=== PATIENT | male | born 1960 | race Caucasian/White ===

== ENCOUNTER 2016-06-06 09:53 | Inpatient (IN) | payer OTHER ==
[2016-06-06] MEDS ORDERED: SODIUM CHLORIDE 0.9% 1,000 ML IV STA ×2 (10:53)
[2016-06-06] MEDS ORDERED: LORazepam 2 MG/ML SYRINGE IV STA (10:54)
[2016-06-06 11:07] LABS: Basophils # (A) 0.1 k/uL (0-0.2); Basophils % (A) 1 %; CH 30.1; CHCM 34.8; Eosinophils # (A) 0.2 k/uL (0-0.7); Eosinophils % (A) 2 %; HCT 46.1 % (39.0-53.0); HDW 2.43; HGB 15.6 gm/dL (13.0-17.5); Luc # (Auto) 0.09; Luc % (Auto) 1; Lymphocytes # (A) 2.2 k/uL (1.0-4.8); Lymphocytes % (A) 24 %; MCH 29.4 pg (25.0-35.0); MCHC 33.8 g/dL (31.0-37.0); MCV 86.9 fL (80.0-100.0); Monocytes # (A) 0.3 k/uL (0-1.0); Monocytes % (A) 4 %; Neutrophils # (A) 6.4 k/uL (1.3-7.7); Neutrophils % (A) 70 %; RDW 13.7 % (11.5-15.5); WBC 9.2 k/uL (3.8-10.6); WBC (Perox) 8.53
--- NOTE | 2016-06-06 11:15 | ED ---
General Adult HPI - General Chief complaint: Seizure Stated complaint: seizure Time Seen by Provider: 06/06/16 10:18 Source: patient, RN notes reviewed, old records reviewed Mode of arrival: EMS Limitations: no limitations - History of Present Illness Initial comments: This is a 56-year-old male to the ER for evaluation bruits this patient comes in for evaluation of seizure. Patient states he has history of seizure although records indicate that he has no prior history of seizure. Patient states he had a seizure secondary to possible stroke prior in his life. Patient denies drugs or alcohol. She is brought in by EMS. Seizure was witnessed and patient did have 2 seizures. At this time he states he feels fine is a little weak and foggy denies headache - Related Data Home Medications Medication Instructions Recorded Confirmed Gabapentin [Neurontin] 300 mg PO TID 01/04/15 06/06/16 Indapamide [Lozol] 2.5 mg PO QAM 01/04/15 06/06/16 Loratadine [Claritin] 10 mg PO QAM 01/04/15 06/06/16 Potassium Chloride [Klor-Con 20] 20 meq PO DAILY 01/04/15 06/06/16 Ranitidine HCl [Zantac] 150 mg PO DAILY 01/04/15 06/06/16 cloNIDine HCL [Catapres] 0.1 mg PO BID 01/04/15 06/06/16 traMADol HCl [Ultram] 50 mg PO TID PRN 01/04/15 06/06/16 Aspirin 325 mg PO DAILY 06/06/16 06/06/16 Cholecalciferol [Vitamin D3] 1,000 unit PO DAILY 06/06/16 06/06/16 Cyclobenzaprine [Flexeril] 10 mg PO TID 06/06/16 06/06/16 Levothyroxine Sodium [Synthroid] 150 mcg PO DAILY 06/06/16 06/06/16 Sertraline [Zoloft] 25 mg PO BID 06/06/16 06/06/16 Allergies Allergy/AdvReac Type Severity Reaction Status Date / Time No Known Allergies Allergy Verified 06/06/16 10:54 Review of Systems ROS Statement: Those systems with pertinent positive or pertinent negative responses have been documented in the HPI. ROS Other: All systems not noted in ROS Statement are negative. Past Medical History Past Medical History: CVA/TIA, Hypertension, Thyroid Disorder Additional Past Medical History / Comment(s): LEFT SIDED WEAKNESS, USES CANE. History of Any Multi-Drug Resistant Organisms: None Reported Past Surgical History: No Surgical Hx Reported Additional Past Anesthesia/Blood Transfusion Reaction / Comment(s): NEVER HAD ANESTHESIA. Past Psychological History: Anxiety, Depression Smoking Status: Current every day smoker Past Alcohol Use History: None Reported Additional Past Alcohol Use History / Comment(s): 1/2PPD, HAD SMOKED WELL BEFORE. Past Drug Use History: None Reported General Exam Limitations: no limitations General appearance: alert, in no apparent distress Head exam: Present: atraumatic, normocephalic, normal inspection Eye exam: Present: normal appearance, PERRL, EOMI. Absent: scleral icterus, conjunctival injection, periorbital swelling ENT exam: Present: normal exam, mucous membranes moist Neck exam: Present: normal inspection. Absent: tenderness, meningismus, lymphadenopathy Respiratory exam: Present: normal lung sounds bilaterally. Absent: respiratory distress, wheezes, rales, rhonchi, stridor Cardiovascular Exam: Present: regular rate, normal rhythm, normal heart sounds. Absent: systolic murmur, diastolic murmur, rubs, gallop, clicks GI/Abdominal exam: Present: soft, normal bowel sounds. Absent: distended, tenderness, guarding, rebound, rigid Extremities exam: Present: normal inspection, full ROM, normal capillary refill. Absent: tenderness, pedal edema, joint swelling, calf tenderness Back exam: Present: normal inspection Neurological exam: Present: alert, oriented X3, CN II-XII intact Psychiatric exam: Present: normal affect, normal mood Skin exam: Present: warm, dry, intact, normal color. Absent: rash Course Vital Signs 06/06/16 06/06/16 06/06/16 09:55 11:00 12:11 Temperature 97.0 F L Pulse Rate 88 91 87 Respiratory 18 18 18 Rate Blood Pressure 138/88 122/83 135/86 O2 Sat by Pulse 98 99 98 Oximetry - Reevaluation(s) Reevaluation #1: 06/06/16 12:28 Patient is without seizure here in the emergency room, no neurological deficits noted EKG Findings - EKG Comments: EKG Findings:: EKG shows normal sinus rhythm rate of 84, NC 174, QRS 100, QTC 472 Medical Decision Making - Medical Decision Making 56 year for evaluation he does have a bit seizure, history no history of seizures, 2 seizures today, patient will be admitted for seizure likely secondary to CVA. Neurological evaluation - Lab Data Result diagrams: 06/06/16 10:07 06/06/16 10:07 Lab Results 06/06/16 06/06/16 06/06/16 Range/Units 10:07 10:07 10:07 WBC 9.2 (3.8-10.6) k/uL RBC 5.30 (4.30-5.90) m/uL Hgb 15.6 (13.0-17.5) gm/dL Hct 46.1 (39.0-53.0) % MCV 86.9 (80.0-100.0) fL MCH 29.4 (25.0-35.0) pg MCHC 33.8 (31.0-37.0) g/dL RDW 13.7 (11.5-15.5) % Plt Count 210 (150-450) k/uL Neutrophils % 70 % Lymphocytes % 24 % Monocytes % 4 % Eosinophils % 2 % Basophils % 1 % Neutrophils # 6.4 (1.3-7.7) k/uL Lymphocytes # 2.2 (1.0-4.8) k/uL Monocytes # 0.3 (0-1.0) k/uL Eosinophils # 0.2 (0-0.7) k/uL Basophils # 0.1 (0-0.2) k/uL PT (9.0-12.0) sec INR (<1.1) APTT (22.0-30.0) sec Sodium 142 (137-145) mmol/L Potassium 3.8 (3.5-5.1) mmol/L Chloride 103 (98-107) mmol/L Carbon Dioxide 25 (22-30) mmol/L Anion Gap 14 mmol/L BUN 10 (9-20) mg/dL Creatinine 1.14 (0.66-1.25) mg/dL Est GFR (MDRD) Af Amer >60 (>60 ml/min/1.73 sqM) Est GFR (MDRD) Non-Af >60 (>60 ml/min/1.73 sqM) Glucose 82 (74-99) mg/dL Calcium 11.5 H (8.4-10.2) mg/dL Phosphorus 2.9 (2.5-4.5) mg/dL Magnesium 1.7 (1.6-2.3) mg/dL Total Bilirubin 0.7 (0.2-1.3) mg/dL AST 35 (17-59) U/L ALT 37 (21-72) U/L Alkaline Phosphatase 116 (38-126) U/L Total Creatine Kinase 57 (55-170) U/L CK-MB (CK-2) 1.3 (0.0-2.4) ng/mL CK-MB (CK-2) Rel Index 2.3 Troponin I 0.036 H* (0.000-0.034) ng/mL Total Protein 7.5 (6.3-8.2) g/dL Albumin 4.4 (3.5-5.0) g/dL Salicylates <1.0 mg/dL Acetaminophen <10.0 ug/mL Serum Alcohol <10 mg/dL 06/06/16 Range/Units 10:07 WBC (3.8-10.6) k/uL RBC (4.30-5.90) m/uL Hgb (13.0-17.5) gm/dL Hct (39.0-53.0) % MCV (80.0-100.0) fL MCH (25.0-35.0) pg MCHC (31.0-37.0) g/dL RDW (11.5-15.5) % Plt Count (150-450) k/uL Neutrophils % % Lymphocytes % % Monocytes % % Eosinophils % % Basophils % % Neutrophils # (1.3-7.7) k/uL Lymphocytes # (1.0-4.8) k/uL Monocytes # (0-1.0) k/uL Eosinophils # (0-0.7) k/uL Basophils # (0-0.2) k/uL PT 10.1 (9.0-12.0) sec INR 1.0 (<1.1) APTT 22.8 (22.0-30.0) sec Sodium (137-145) mmol/L Potassium (3.5-5.1) mmol/L Chloride (98-107) mmol/L Carbon Dioxide (22-30) mmol/L Anion Gap mmol/L BUN (9-20) mg/dL Creatinine (0.66-1.25) mg/dL Est GFR (MDRD) Af Amer (>60 ml/min/1.73 sqM) Est GFR (MDRD) Non-Af (>60 ml/min/1.73 sqM) Glucose (74-99) mg/dL Calcium (8.4-10.2) mg/dL Phosphorus (2.5-4.5) mg/dL Magnesium (1.6-2.3) mg/dL Total Bilirubin (0.2-1.3) mg/dL AST (17-59) U/L ALT (21-72) U/L Alkaline Phosphatase (38-126) U/L Total Creatine Kinase (55-170) U/L CK-MB (CK-2) (0.0-2.4) ng/mL CK-MB (CK-2) Rel Index Troponin I (0.000-0.034) ng/mL Total Protein (6.3-8.2) g/dL Albumin (3.5-5.0) g/dL Salicylates mg/dL Acetaminophen ug/mL Serum Alcohol mg/dL - Radiology Data Radiology results: report reviewed (CT brain is negative for acute disease), image reviewed Disposition Clinical Impression: New onset seizure, CVA (cerebral vascular accident) Disposition: ADMITTED IP TO THIS [facility] Condition: Fair Referrals: Salvatore Rodriguez DO [Primary Care Provider] - 1-2 days
[2016-06-06 11:17] LABS: ALT 37 U/L (21-72); AST 35 U/L (17-59); Acetaminophen <10.0 ug/mL; Alcohol <10 mg/dL; Alkaline Phosphatase 116 U/L (38-126); Anion Gap 14 mmol/L; Blood Urea Nitrogen 10 mg/dL (9-20); Calcium 11.5 mg/dL (8.4-10.2); Carbon Dioxide 25 mmol/L (22-30); Chloride 103 mmol/L (98-107); Glucose 82 mg/dL (74-99); Magnesium 1.7 mg/dL (1.6-2.3); Non-African American GFR(MDRD) >60 (>60 ml/min/1.73 sqM); Phosphorous 2.9 mg/dL (2.5-4.5); Potassium 3.8 mmol/L (3.5-5.1); Salicylate <1.0 mg/dL; Sodium 142 mmol/L (137-145); Total Bilirubin 0.7 mg/dL (0.2-1.3); Total Protein 7.5 g/dL (6.3-8.2)
[2016-06-06 11:18] LABS: Partial Thromboplastin Time 22.8 sec (22.0-30.0); Prothrombin Time 10.1 sec (9.0-12.0)
[2016-06-06 11:41] LABS: Creatine Kinase MB 1.3 ng/mL (0.0-2.4)
[2016-06-06 11:46] LABS: Troponin I 0.036 ng/mL (0.000-0.034)
--- NOTE | 2016-06-06 12:18 | CT ---
EXAMINATION TYPE: CT brain wo con DATE OF EXAM: 06/06/2016 12:09 PM COMPARISON: NONE HISTORY: 56-year-old male with weakness TECHNIQUE: Examination was done in axial plane without intravenous contrast. Coronal and sagittal r econstructions performed. CT DLP: 1090.4 mGycm Automated exposure control for dose reduction was used. FINDINGS: Mild generalized supratentorial volume loss. There is extensive hypodensity with encephalomalacia taina ng the right frontal lobe with secondary volume loss in the right cerebellar hemisphere and asymmetri c ex vacuo enlargement of the right lateral ventricle. There is no evidence of acute intracranial hemorrhage, acute ischemic changes, mass, mass-effect, or extra-axial fluid collection. There is no effacement of cerebral sulci or basal subarachnoid cister ns. There is no hydrocephalus. There is no midline shift. Rubio-white matter distinction is preserv ed. Right paranasal septal deviation with a opacified left-sided abhilash bullosa. Mild to moderate mucosal thickening scattered throughout the ethmoid air cells. Mastoid air cells well pneumatized. Orbits an d globes appear intact. IMPRESSION: 1. Remote right MCA territory infarct with secondary volume loss in the right cerebral hemisphere. 2. No acute intracranial abnormality seen. 3. Mild chronic ethmoid sinus disease and opacified left-sided abhilash bullosa incidentally noted.
[2016-06-06] MEDS ORDERED: ASPIRIN 325 MG TAB PO STA (12:25)
[2016-06-06] MEDS ORDERED: levETIRAcetam IV 1,000 MG in SALINE 1 100ML.BAG IVPB STA (12:27)
[2016-06-06] MEDS: SODIUM CHLORIDE 0.9% 1,000 ML IV SCH ×2 (13:05→23:00)
[2016-06-06] MEDS ORDERED: ASPIRIN 300 MG SUPP RECTAL STA (15:48)
--- NOTE | 2016-06-06 16:41 | P.HPIM ---
History of Present Illness H&P Date: 06/06/16 Chief Complaint: Seizure 56 year old gentleman with previous history of right-sided CVA with left-sided deficits comes in to the hospital with an episode of seizure. Patient apparently was seen by Dr. Kraus for 2 other episodes of seizures in the last 3 months. Patient was started on aspirin at that time. No seizure medications were initiated. Patient comes in the hospital with this episode of seizure activity as described by his girlfriend for about 30 seconds with the significant left- sided shaking. Patient was thereafter unconscious and was confused for a short duration. Patient denies having any recent headaches she fevers chills nausea vomiting diarrhea urinary urgency abdominal pain. Patient does have a history of carotid disease which is apparently attributed to his previous stroke. Patient has a contracted arm on the left upper extremity and a foot drop which was residual symptoms. does take tramadol for pain control apparently took about 4 tramadol within a period of one hour on 06/05/2016 this is a few hours prior to the onset of episode. Review of Systems All systems: negative (Noted in HPI) Past Medical History Past Medical History: CVA/TIA, Hypertension, Thyroid Disorder Additional Past Medical History / Comment(s): LEFT SIDED WEAKNESS, USES CANE. History of Any Multi-Drug Resistant Organisms: None Reported Past Surgical History: No Surgical Hx Reported Additional Past Anesthesia/Blood Transfusion Reaction / Comment(s): NEVER HAD ANESTHESIA. Past Psychological History: Anxiety, Depression Smoking Status: Current every day smoker Past Alcohol Use History: None Reported Additional Past Alcohol Use History / Comment(s): 1/2PPD, HAD SMOKED WELL BEFORE. Past Drug Use History: None Reported Medications and Allergies Home Medications Medication Instructions Recorded Confirmed Type Gabapentin [Neurontin] 300 mg PO TID 01/04/15 06/06/16 History Indapamide [Lozol] 2.5 mg PO QAM 01/04/15 06/06/16 History Loratadine [Claritin] 10 mg PO QAM 01/04/15 06/06/16 History Potassium Chloride [Klor-Con 20] 20 meq PO DAILY 01/04/15 06/06/16 History Ranitidine HCl [Zantac] 150 mg PO DAILY 01/04/15 06/06/16 History cloNIDine HCL [Catapres] 0.1 mg PO BID 01/04/15 06/06/16 History traMADol HCl [Ultram] 50 mg PO TID PRN 01/04/15 06/06/16 History Aspirin 325 mg PO DAILY 06/06/16 06/06/16 History Cholecalciferol [Vitamin D3] 1,000 unit PO DAILY 06/06/16 06/06/16 History Cyclobenzaprine [Flexeril] 10 mg PO TID 06/06/16 06/06/16 History Levothyroxine Sodium [Synthroid] 150 mcg PO DAILY 06/06/16 06/06/16 History Sertraline [Zoloft] 25 mg PO BID 06/06/16 06/06/16 History Allergies Allergy/AdvReac Type Severity Reaction Status Date / Time No Known Allergies Allergy Verified 06/06/16 10:54 Physical Exam Vitals: Vital Signs Temp Pulse Pulse Resp BP BP Pulse Ox 06/06/16 15:30 98.1 F 78 18 140/87 100 06/06/16 15:00 82 18 124/86 99 06/06/16 14:30 78 18 140/87 100 06/06/16 14:00 81 20 126/81 99 06/06/16 13:30 98.3 F 90 18 119/86 06/06/16 13:05 84 20 123/80 98 Physical exam Gen. appearance oriented 3 in no distress Neck is supple no JVD Lungs good air entry clear to auscultation no rhonchi or wheezing Heart S1-S2 heard regular rate and rhythm no murmurs appreciated Abdomen is soft nontender no organomegaly bowel sounds are intact Neurologically cranial nerves II-12 grossly intact contracted left upper arm however strength appears to be 2-3 out of 5 left lower extremity strength is 5 out of 5 except for left foot drop right upper and lower x-ray strength is 5 out of 5 Skin no abnormalities appreciated Results CBC & Chem 7: 06/06/16 10:07 06/06/16 10:07 Assessment and Plan Plan: #1 generalized seizure disorder patient does have significant foci for seizure activity from the previous stroke however patient has been taking excessive amounts of tramadol which may be the underlying etiology for it, and I'll has been shown to potentiate seizure activity #2 history of previous right MCA infarct with left-sided deficits #3 ongoing tobacco use #4 history of hypertension #5 peripheral neuropathy #6 dyslipidemia #7 significant PAD #8 dyslipidemia plan Plan We'll discontinue tramadol this was discussed with the patient. We'll obtain MRI of the brain. Have neurology on consultation Keppra have been initiated. Seizure precautions Medications were reconsulted appropriate DVT prophylaxis neuro checks Telemetry monitoring.
[2016-06-06] MEDS ORDERED: HYDROcodone/APAP 7.5-325MG 1 EACH TAB PO PRN (16:42)
--- NOTE | 2016-06-06 16:54 | P.CNNES ---
History of Present Illness Consult date: 06/06/16 Reason for Consult: Patient with seizures and history of stroke. History of Present Illness: This patient is a 56-year-old right-handed white male who apparently today was at home and had 2 witnessed seizures. Patient is a poor historian but states that he thinks he had 2 possible seizures. According to his significant other he was at home and was laying in bed when he apparently had the episode in which he became rigid and stiff. His eyes rolled back into his head. This episode lasted for at least 30-60 seconds before he came out of it. He had a second event very similar to the first. According to his significant other it took about an hour for him to return to baseline. EMS was called to the home. Patient denies any previous history of drug or alcohol use. He was brought into the emergency room at [facility] for further evaluation. He was seen in the ER by Dr. Chacon. A computed tomography scan of the brain was completed and revealed evidence of remote right MCA stroke. No evidence of acute intracranial abnormality was noted. Patient has not been on any specific seizure medications. Apparently he has had a few seizures in the past. His last event possibly happened about 6 months ago. The patient is a poor historian. His processing is very slow. These are all secondary to his history of right MCA stroke. Patient does take one baby aspirin on a daily basis. He states he suffered a stroke in 2013 and was left with left-sided hemiplegia. He has made slow recovery with the help of PT OT evaluations. He was seen in the emergency room for this seizure and was started on Keppra as a primary anticonvulsant medication. Patient's stroke risk factors include hypertension and hyperlipidemia. He is now been admitted and neurology has been consulted for further evaluation and recommendations. Review of Systems Constitutional: Denies chills, Denies fever Eyes: denies blurred vision, denies pain Ears, nose, mouth and throat: Denies headache, Denies sore throat Cardiovascular: Denies chest pain, Denies shortness of breath Respiratory: Denies cough Gastrointestinal: Denies abdominal pain, Denies diarrhea, Denies nausea, Denies vomiting Musculoskeletal: Denies myalgias Integumentary: Denies pruritus, Denies rash Neurological: Denies numbness, Denies weakness Psychiatric: Denies anxiety, Denies depression Endocrine: Denies fatigue, Denies weight change Past Medical History Past Medical History: CVA/TIA, Hypertension, Thyroid Disorder Additional Past Medical History / Comment(s): LEFT SIDED WEAKNESS, USES CANE. History of Any Multi-Drug Resistant Organisms: None Reported Past Surgical History: No Surgical Hx Reported Additional Past Anesthesia/Blood Transfusion Reaction / Comment(s): NEVER HAD ANESTHESIA. Past Psychological History: Anxiety, Depression Smoking Status: Current every day smoker Past Alcohol Use History: None Reported Additional Past Alcohol Use History / Comment(s): 1/2PPD, HAD SMOKED WELL BEFORE. Past Drug Use History: None Reported Medications and Allergies Home Medications Medication Instructions Recorded Confirmed Type Gabapentin [Neurontin] 300 mg PO TID 01/04/15 06/06/16 History Indapamide [Lozol] 2.5 mg PO QAM 01/04/15 06/06/16 History Loratadine [Claritin] 10 mg PO QAM 01/04/15 06/06/16 History Potassium Chloride [Klor-Con 20] 20 meq PO DAILY 01/04/15 06/06/16 History Ranitidine HCl [Zantac] 150 mg PO DAILY 01/04/15 06/06/16 History cloNIDine HCL [Catapres] 0.1 mg PO BID 01/04/15 06/06/16 History traMADol HCl [Ultram] 50 mg PO TID PRN 01/04/15 06/06/16 History Aspirin 325 mg PO DAILY 06/06/16 06/06/16 History Cholecalciferol [Vitamin D3] 1,000 unit PO DAILY 06/06/16 06/06/16 History Cyclobenzaprine [Flexeril] 10 mg PO TID 06/06/16 06/06/16 History Levothyroxine Sodium [Synthroid] 150 mcg PO DAILY 06/06/16 06/06/16 History Sertraline [Zoloft] 25 mg PO BID 06/06/16 06/06/16 History Allergies Allergy/AdvReac Type Severity Reaction Status Date / Time No Known Allergies Allergy Verified 06/06/16 10:54 Physical Examination - Vital Signs Vital Signs: Vital Signs Temp Pulse Pulse Resp BP BP Pulse Ox 06/06/16 15:30 98.1 F 78 18 140/87 100 06/06/16 15:00 82 18 124/86 99 04/30/17 14:30 78 18 140/87 100 06/06/16 14:00 81 20 126/81 99 06/06/16 13:30 98.3 F 90 18 119/86 06/06/16 13:05 84 20 123/80 98 - Constitutional General appearance: average body habitus, cooperative - EENT EENT: PERRL, mucous membranes moist - Respiratory Respiratory: lungs clear, normal breath sounds - Cardiovascular Cardiovascular: regular rate, normal S1, normal S2 Extremities: no peripheral edema bilaterally - Gastrointestinal Gastrointestinal: normoactive bowel sounds - Integumentary Integumentary: normal - Neurologic Cranial nerve examination: PERRL, EOMI, VFF, V1/V2/V3 grossly intact, face symmetric, intact gag reflex, intact corneal reflex, normal palatal elevation Speech examination: intact Sensorimotor examination: intact Detailed motor examination: grossly full strength in all extremities Motor examination - right side: 5/5: biceps, triceps, wrist flexion, wrist extension, dish machine operator, hip flexors, knee extensors, dorsiflexion, toe extension (EHL) , plantarflexion Motor examination - left side: 5/5: biceps, triceps, wrist flexion, wrist extension, dish machine operator, hip flexors, knee extensors, dorsiflexion, toe extension (EHL) , plantarflexion Detailed sensory examination: intact Incision: clean Reflexes: 1+: ankle, bicep, knee, tricep - Musculoskeletal Musculoskeletal: no pain - Psychiatric Psychiatric: mood/affect appropriate, cooperative Results - Laboratory Findings CBC and BMP: 06/06/16 10:07 06/06/16 10:07 Assessment and Plan (1) Chronic right arterial ischemic stroke, MCA (middle cerebral artery) Status: Acute Code(s): I69.30 - UNSPECIFIED SEQUELAE OF CEREBRAL INFARCTION (2) Complex partial epilepsy Status: Acute Code(s): G40.209 - LOCAL-REL SYMPTC EPI W CMPLX PRT SEIZ,NOT NTRCT,W/O STAT EPI (3) New onset seizure Status: Acute Code(s): R56.9 - UNSPECIFIED CONVULSIONS Plan: This patient is a 56-year-old male with a history of right MCA stroke which she suffered in 2013. He has been left with residual left-sided hemiparesthesias. Apparently today he had 2 generalized seizures. These are witnessed by his significant other. Patient was brought by EMS to the emergency room where he was only admitted to Hospital. And when his computed tomography scan of the brain was reported negative for any acute changes. There was evidence of an old right MCA stroke. No evidence of acute hemorrhage. The patient was subsequent admitted to the hospital. He was loaded in the ER with IV levetiracetam thousand milligrams twice a day. We will check his levetiracetam blood level tomorrow morning. The patient will undergo routine EEG for further assessment. It is unclear whether these 2 events are related to her history of seizures in the past. His neurological examination reveals evidence of left- sided spastic hemiparesis from his previous stroke. We will continue close neurological follow-up of this patient. We will adjust his levetiracetam blood level if needed. He was advised of the [place] driving law which states he cannot drive for periods 6 months following his last seizure. His overall prognosis at this time remains very guarded. His overall prognosis at this time remains very guarded. Time with Patient: Greater than 30
[2016-06-06] MEDS ORDERED: CALCIUM CARBONATE 500 MG CHEWABLE PO PRN (18:25)
[2016-06-06] MEDS ORDERED: MAG HYDROX/AL HYDROX/SIMETH 30 ML CUP PO PRN (21:00)
[2016-06-06] MEDS: cloNIDine HCL 0.1 MG TAB PO SCH (21:14)
[2016-06-06] MEDS: GABAPENTIN 300 MG CAP PO SCH (21:14)
[2016-06-06] MEDS: SERTRALINE 25 MG TAB PO SCH (21:14)
[2016-06-06] MEDS: levETIRAcetam IV 1,000 MG in SALINE 1 100ML.BAG IVPB SCH (23:00)
[2016-06-06] MEDS: LORATADINE 10 MG TAB PO SCH (23:00)
[2016-06-07] MEDS: LEVOTHYROXINE 75 MCG TAB PO SCH (05:50)
[2016-06-07 08:22] LABS: Basophils % (A) 1 %; CH 30.2; CHCM 35.4; Eosinophils # (A) 0.2 k/uL (0-0.7); Eosinophils % (A) 3 %; HCT 38.6 % (39.0-53.0); HDW 2.49; HGB 13.7 gm/dL (13.0-17.5); Luc # (Auto) 0.12; Luc % (Auto) 2; Lymphocytes # (A) 3.1 k/uL (1.0-4.8); Lymphocytes % (A) 46 %; MCH 30.4 pg (25.0-35.0); MCHC 35.5 g/dL (31.0-37.0); MCV 85.6 fL (80.0-100.0); Mean Platelet Volume 7.9; Monocytes # (A) 0.4 k/uL (0-1.0); Monocytes % (A) 7 %; Neutrophils # (A) 2.8 k/uL (1.3-7.7); Neutrophils % (A) 42 %; RBC 4.51 m/uL (4.30-5.90); RDW 13.6 % (11.5-15.5); WBC 6.7 k/uL (3.8-10.6); WBC (Perox) 6.04
[2016-06-07] MEDS ORDERED: ASPIRIN 325 MG TAB PO SCH (09:00)
--- NOTE | 2016-06-07 09:39 | MR ---
EXAMINATION TYPE: MR brain wo/w con DATE OF EXAM: 06/07/2016 9:31 AM COMPARISON: CT brain 06/06/2016 HISTORY: Mass CONTRAST: Patient received 17 mL intravenous MultiHance gadolinium contrast. Multiplanar and multispin-echo imaging of the brain was performed . Pre and post contrast enhanced i mages are obtained. The ventricles, basal cisterns and sulci overlying the cerebral convexities are moderately enlarged. Remote insult right frontal lobe with associated gliosis and ex vacuo dilatation right frontal horn and right lateral ventricle. There is evidence of moderate periventricular white matter ischemic demyelination. Remote deep white matter insults are also noted. No acute edema is seen on diffusion weighted imaging. There is no evidence for midline shift or mass effect. Acute intracranial hemorrhage or extra-axial collection is not evident. No enhancing lesions are seen. The paranasal sinuses and mastoid air cells are well-aerated. IMPRESSION: 1. Moderate sized area of remote insult right frontal lobe with associated gliosis and encephalomalac ia. 2. No enhancing lesion is identified. 3. Age-related atrophic and chronic small vessel ischemic change.
[2016-06-07] MEDS: SODIUM CHLORIDE 0.9% 1,000 ML IV SCH ×2 (09:44→18:24)
[2016-06-07] MEDS: GABAPENTIN 300 MG CAP PO SCH ×3 (09:45→20:35)
[2016-06-07] MEDS: CHOLECALCIFEROL 1,000 UNIT TAB PO SCH (09:45)
[2016-06-07] MEDS: cloNIDine HCL 0.1 MG TAB PO SCH ×2 (09:45→20:35)
[2016-06-07] MEDS: FAMOTIDINE 20 MG TAB PO SCH (09:45)
[2016-06-07] MEDS: ASPIRIN 325 MG TAB PO SCH (09:45)
[2016-06-07] MEDS: INDAPAMIDE 2.5 MG TAB PO SCH (09:46)
[2016-06-07] MEDS: SERTRALINE 25 MG TAB PO SCH ×2 (09:46→20:35)
[2016-06-07] MEDS: LORATADINE 10 MG TAB PO SCH (09:46)
[2016-06-07 11:19] LABS: ALT 35 U/L (21-72); AST 32 U/L (17-59); Alkaline Phosphatase 104 U/L (38-126); Anion Gap 11 mmol/L; Blood Urea Nitrogen 9 mg/dL (9-20); Calcium 9.6 mg/dL (8.4-10.2); Carbon Dioxide 28 mmol/L (22-30); Chloride 105 mmol/L (98-107); Glucose 118 mg/dL (74-99); Magnesium 1.5 mg/dL (1.6-2.3); Non-African American GFR(MDRD) >60 (>60 ml/min/1.73 sqM); Potassium 3.5 mmol/L (3.5-5.1); Sodium 144 mmol/L (137-145); Total Bilirubin 0.7 mg/dL (0.2-1.3); Total Protein 6.7 g/dL (6.3-8.2)
[2016-06-07] MEDS: levETIRAcetam IV 1,000 MG in SALINE 1 100ML.BAG IVPB SCH ×2 (12:20→23:27)
--- NOTE | 2016-06-07 14:39 | P.CRDCN ---
History of Present Illness Consult date: 06/07/16 History of present illness: This is a pleasant 56-year-old gentleman with a past medical history significant for CVA was brought to the hospital after he had seizure at home. The patient had 3 episodes of seizure at home. The seizure was witnessed by family members. We get involved in the care of the patient because the cardiac enzymes were checked and came in to be slightly abnormal. The EKG showed sinus rhythm with old inferior OH and no acute ischemic changes. The patient does not recall having any chest pain or discomfort or difficulty breathing. He is a poor historian overall. He does not have any diabetes or hypertension or dyslipidemia nor coronary artery disease. He does smoke about three quarters of a pack per day. He does have a family history of coronary artery disease. I would consider a conservative medical approach at this point of time in view of the absence of chest discomfort and EKG changes. We will obtain 2 more sets of serial cardiac enzymes. He is on aspirin we'll continue that. I would add statin to the current medical treatment. Obtain an echocardiogram was Doppler. Also he needs to have a stress test to rule out any severe underlying CAD down the line. Past Medical History Past Medical History: CVA/TIA, Hyperlipidemia, Hypertension, Thyroid Disorder Additional Past Medical History / Comment(s): Left sided weakness from CVA in 2013. History of Any Multi-Drug Resistant Organisms: None Reported Past Surgical History: No Surgical Hx Reported Past Anesthesia/Blood Transfusion Reactions: No Reported Reaction Additional Past Anesthesia/Blood Transfusion Reaction / Comment(s): NEVER HAD ANESTHESIA. Past Psychological History: Anxiety, Depression Smoking Status: Current every day smoker Past Alcohol Use History: None Reported Additional Past Alcohol Use History / Comment(s): Smokes approx 5 cig a day Past Drug Use History: None Reported - Past Family History Father Family Medical History: Congestive Heart Failure (CHF) Additional Family Medical History / Comment(s): Parkinsons Mother Family Medical History: Cancer Medications and Allergies Home Medications Medication Instructions Recorded Confirmed Type Gabapentin [Neurontin] 300 mg PO TID 01/04/15 06/06/16 History Indapamide [Lozol] 2.5 mg PO QAM 01/04/15 06/06/16 History Loratadine [Claritin] 10 mg PO QAM 01/04/15 06/06/16 History Potassium Chloride [Klor-Con 20] 20 meq PO DAILY 01/04/15 06/06/16 History Ranitidine HCl [Zantac] 150 mg PO DAILY 01/04/15 06/06/16 History cloNIDine HCL [Catapres] 0.1 mg PO BID 01/04/15 06/06/16 History traMADol HCl [Ultram] 50 mg PO TID PRN 01/04/15 06/06/16 History Aspirin 325 mg PO DAILY 06/06/16 06/06/16 History Cholecalciferol [Vitamin D3] 1,000 unit PO DAILY 06/06/16 06/06/16 History Cyclobenzaprine [Flexeril] 10 mg PO TID 06/06/16 06/06/16 History Levothyroxine Sodium [Synthroid] 150 mcg PO DAILY 06/06/16 06/06/16 History Sertraline [Zoloft] 25 mg PO BID 06/06/16 06/06/16 History Allergies Allergy/AdvReac Type Severity Reaction Status Date / Time No Known Allergies Allergy Verified 06/06/16 10:54 Physical Exam Vitals: Vital Signs Temp Pulse Pulse Resp BP BP BP 06/07/16 12:00 97.3 F L 73 18 161/98 06/07/16 08:00 99.0 F 83 18 143/90 06/07/16 07:41 06/07/16 03:35 97.8 F 72 16 150/97 06/07/16 00:00 78 16 145/92 06/06/16 21:24 98.6 F 74 16 142/90 06/06/16 17:04 97.3 F L 76 16 162/96 06/06/16 16:00 97.3 F L 76 16 142/92 06/06/16 15:30 98.1 F 78 18 140/87 06/06/16 15:00 82 18 124/86 Pulse Ox 06/07/16 12:00 98 06/07/16 08:00 97 06/07/16 07:41 94 L 06/07/16 03:35 93 L 06/07/16 00:00 95 06/06/16 21:24 96 06/06/16 17:04 100 06/06/16 16:00 98 06/06/16 15:30 100 06/06/16 15:00 99 Intake and Output 0406/07/16 06/07/16 22:59 06:59 14:59 Intake Total 400 800 Output Total 400 925 Balance 0 800 -925 Intake: IV 400 800 Sodium Chloride 0.9% 1, 400 700 000 ml @ 100 mls/hr IV . Q10H [facility] Rx#:[id number] levETIRAcetam IV 1,000 mg 100 In Saline 1 100ml.bag @ 400 mls/hr IVPB ONCE STA Rx#:[id number] Output: Urine 400 925 Other: Voiding Method Urinal Weight 86 kg - Constitutional General appearance: no acute distress - Respiratory Respiratory: bilateral: CTA - Cardiovascular Rhythm: regular Heart sounds: normal: S1, S2 Results 06/07/16 05:52 06/07/16 10:17 Cardiac Enzymes 06/06/16 06/06/16 06/07/16 Range/Units 16:18 21:21 10:17 AST 32 (17-59) U/L Troponin I 0.903 H* 0.823 H* (0.000-0.034) ng/mL CBC 06/07/16 Range/Units 05:52 WBC 6.7 (3.8-10.6) k/uL RBC 4.51 (4.30-5.90) m/uL Hgb 13.7 (13.0-17.5) gm/dL Hct 38.6 L (39.0-53.0) % Plt Count 186 (150-450) k/uL Comprehensive Metabolic Panel 06/07/16 Range/Units 10:17 Sodium 144 (137-145) mmol/L Potassium 3.5 (3.5-5.1) mmol/L Chloride 105 (98-107) mmol/L Carbon Dioxide 28 (22-30) mmol/L BUN 9 (9-20) mg/dL Creatinine 1.15 (0.66-1.25) mg/dL Glucose 118 H (74-99) mg/dL Calcium 9.6 (8.4-10.2) mg/dL AST 32 (17-59) U/L ALT 35 (21-72) U/L Alkaline Phosphatase 104 (38-126) U/L Total Protein 6.7 (6.3-8.2) g/dL Albumin 3.9 (3.5-5.0) g/dL Current Medications Generic Name Dose Route Start Last Admin Trade Name Freq PRN Reason Stop Dose Admin Hydrocodone Bitart/Acetaminophen 1 each 06/06/16 16:42 06/06/16 23:23 Minturn 7.5-325 PO 1 each Q8H PRN Administration Moderate Pain Al Hydroxide/Mg Hydroxide 30 ml 06/06/16 21:00 06/06/16 21:13 Maalox PO 30 ml Q4HR PRN Administration GI Upset Aspirin 325 mg 06/07/16 09:00 06/07/16 09:45 Aspirin PO 325 mg DAILY DON Administration Calcium Carbonate/Glycine 500 mg 06/06/16 18:25 06/06/16 19:00 Tums PO 500 mg QID PRN Administration Heartburn Cholecalciferol 1,000 unit 06/07/16 09:00 06/07/16 09:45 Vitamin D3 PO 1,000 unit DAILY DON Administration Clonidine 0.1 mg 06/06/16 21:00 06/07/16 09:45 Catapres PO 0.1 mg BID DON Administration Famotidine 20 mg 06/07/16 09:00 06/07/16 09:45 Pepcid PO 20 mg DAILY DON Administration Gabapentin 300 mg 06/06/16 22:00 06/07/16 09:45 Neurontin PO 300 mg TID DON Administration Sodium Chloride 1,000 mls @ 100 mls/hr 06/06/16 12:30 06/07/16 09:44 Saline 0.9% IV 100 mls/hr .Q10H DON Administration Levetiracetam 1,000 mg/ IV 100 mls @ 400 mls/hr 06/07/16 00:00 06/07/16 12:20 Solution IVPB 400 mls/hr Q12H DON Administration Indapamide 2.5 mg 06/07/16 09:00 06/07/16 09:46 Lozol PO 2.5 mg QAM DON Administration Levothyroxine Sodium 150 mcg 06/07/16 06:30 06/07/16 05:50 Synthroid PO 150 mcg DAILY@0630 DON Administration Loratadine 10 mg 06/06/16 21:30 06/07/16 09:46 Claritin PO 10 mg DAILY DON Administration Sertraline HCl 25 mg 06/06/16 21:00 06/07/16 09:46 Zoloft PO 25 mg BID DON Administration Intake and Output 06/06/16 06/07/16 06/07/16 22:59 06:59 14:59 Intake Total 400 800 Output Total 400 925 Balance 0 800 -925 Intake: IV 400 800 Sodium Chloride 0.9% 1, 400 700 000 ml @ 100 mls/hr IV . Q10H [facility] Rx#:[id number] levETIRAcetam IV 1,000 mg 100 In Saline 1 100ml.bag @ 400 mls/hr IVPB ONCE STA Rx#:[id number] Output: Urine 400 925 Other: Voiding Method Urinal Weight 86 kg 06/07/16 05:52 06/07/16 10:17 Assessment and Plan Plan: Assessment #1 recurrent seizure #2 history of stroke Plan #1 smoking cessation was discussed with him #2 add statin to the aspirin #3 obtaining an echocardiogram was Doppler #4 follow-up with the patient
--- NOTE | 2016-06-07 19:11 | PN ---
HOSPITAL COURSE/SUBJECTIVE DATA: This is a 56-year-old gentleman who was admitted to the hospital with an episode of seizure. Patient had a significant right MCA territory stroke with left-sided deficits 2 years ago. Patient comes into the hospital; was noted to have a troponin leak as well. Patient was on Tramadol; was taking apparently 4 to 5 Tramadol tablets a few hours prior to the onset of his seizure episode. Patient has had 2 other episodes of seizures in the last 3 months. Patient was being seen by Dr. Dobbs. Today patient states that he is feeling improved. At his baseline denies headaches, blurry vision, nausea, vomiting, diarrhea, abdominal pain. PHYSICAL EXAMINATION: VITAL SIGNS: Temperature 97.3, heart rate 73, blood pressure 161/98. Saturating 98% on room air. GENERALLY: Patient appears to be alert, oriented x3. HEENT: The pupils are equal and reactive to light and accommodation. HEART: S1, S2 present. No murmur appreciated. LUNGS: Good air entry. No wheezing or rhonchi noted. ABDOMINAL EXAM: Soft, nontender, no organomegaly appreciated. GENITOURINARY: No Anna in place. EXTREMITIES: Pulses can be palpated distally. Denies any tenderness on gross palpation. SKIN: On a gross skin exam does not appear to have any purpura or any skin rashes that were noted. NEUROLOGICALLY: Strength on the left upper extremity is 3/5, contracted; left lower extremity is 5/5; right upper and right lower extremity is 5/5. Cranial nerves 2 to 12 are grossly intact. Laboratory data today include hemoglobin 13.7, hematocrit 38.6; white count 6.7, platelets 186. Sodium 144, potassium 3.5, chloride 105, bicarb 28. BUN 9, creatinine 1.15. Peak troponin of 0.903. TSH of 9.2. ASSESSMENT AND PLAN: 1. Generalized seizure disorder. Await EEG. Discussed discontinuation of Tramadol with the patient. Continue Keppra. 2. Previous right middle cerebral artery infarct with left-sided deficits. 3. Ongoing tobacco use. 4. History of hypertension. 5. Indeterminate troponin leak. 6. Significant peripheral arterial disease. 7. Dyslipidemia. PLAN: Continue telemetry monitoring. Patient would need a stress test as recommended by Cardiology. Await echocardiogram results. Patient is free of chest pain at this time. Will likely discharge the patient in the next 24 hours, depending on the results of the echo and EEG. Can follow up with Dr. Liu on an outpatient basis to obtain stress test.
--- NOTE | 2016-06-07 19:28 | P.PN ---
Subjective This patient is a 56 year old male who was seen in neurology consultation yesterday for new onset seizure and history of stroke. Patient was brought into the emergency room after he had a questionable 2 episodes of generalized seizure activity. He was seen in the ER by Dr. Galeano, and underwent a computed tomography scan of the brain. A CAT scan of the brain revealed evidence of a remote right MCA stroke. No other abnormalities were noted at the time. He was started on Keppra for seizure prophylaxis. He was up screaming admitted to hospital yesterday. His neurological examination yesterday revealed evidence of remote left-sided hemiparesis from previous stroke. He was sent for MRI of the brain today with and without gadolinium. The report of the MRI today indicates a moderate size remote insult to the right frontal lobe with associated gliosis and encephalomalacia. No enhancing lesion was identified. We reviewed the results of the MRI today with the patient. He is to continue on Keppra at this time for seizure prophylaxis. His Keppra blood level is pending today from the laboratory. He will undergo EEG today which will be reviewed. His EEG was reviewed today and fails to reveal any evidence of epileptic seizure focus. Patient may continue on Keppra at this time and have a repeat level done soon after discharge. His overall prognosis at this time remains guarded. Objective - Vital Signs Vital signs: Vital Signs Temp 97.3 F L 06/07/16 12:00 Pulse 73 06/07/16 12:00 Resp 18 06/07/16 12:00 BP 161/98 06/07/16 12:00 Pulse Ox 98 06/07/16 12:00 Intake & Output 06/06/16 06/07/16 06/07/16 18:59 06:59 18:59 Intake Total 1200 Output Total 400 925 Balance 800 -925 Weight 86 kg Intake: IV 1200 Sodium Chloride 0.9% 1, 1100 000 ml @ 100 mls/hr IV . Q10H [facility] Rx#:[id number] levETIRAcetam IV 1,000 mg 100 In Saline 1 100ml.bag @ 400 mls/hr IVPB ONCE STA Rx#:[id number] Output: Urine 400 925 Other: Voiding Method Urinal - Exam Physical examination: PHYSICAL EXAMINATION: Patient is resting comfortably in bed. VITAL SIGNS: Blood pressure is [161/98]. Heart rate is [73]. Respiration is [18] . Temperature is [97.3]. HEENT: Head is atraumatic, neck is supple, there were no carotid bruits. CHEST: Lungs are clear to auscultation and percussion. CARDIAC: S1, S2 normal rate and rhythm. There is no murmur. ABDOMEN: Soft and nontender. Bowel sounds are present. EXTREMITIES: There is no pedal edema. Peripheral pulses are present. Neurological examination: Patient's neurological examination is unchanged from yesterday. - Labs CBC & Chem 7: 06/07/16 05:52 06/07/16 10:17 Labs: Abnormal Lab Results - Last 24 Hours (Table) 06/06/16 06/06/16 06/07/16 Range/Units 16:18 21:21 05:52 Hct 38.6 L (39.0-53.0) % Glucose (74-99) mg/dL Magnesium (1.6-2.3) mg/dL Troponin I 0.903 H* 0.823 H* (0.000-0.034) ng/mL TSH (0.465-4.680) mIU/L 06/07/16 06/07/16 Range/Units 05:52 10:17 Hct (39.0-53.0) % Glucose 118 H (74-99) mg/dL Magnesium 1.5 L (1.6-2.3) mg/dL Troponin I (0.000-0.034) ng/mL TSH 9.260 H (0.465-4.680) mIU/L Assessment and Plan (1) Chronic right arterial ischemic stroke, MCA (middle cerebral artery) Status: Acute Code(s): I69.30 - UNSPECIFIED SEQUELAE OF CEREBRAL INFARCTION (2) Complex partial epilepsy Status: Acute Code(s): G40.209 - LOCAL-REL SYMPTC EPI W CMPLX PRT SEIZ,NOT NTRCT,W/O STAT EPI (3) New onset seizure Status: Acute Code(s): R56.9 - UNSPECIFIED CONVULSIONS Plan: This patient is a 56-year-old male with a history of right MCA stroke which she suffered in 2013. He has been left with residual left-sided hemiparesthesias. Apparently today he had 2 generalized seizures. These are witnessed by his significant other. Patient was brought by EMS to the emergency room where he was only admitted to Hospital. And when his computed tomography scan of the brain was reported negative for any acute changes. There was evidence of an old right MCA stroke. No evidence of acute hemorrhage. The patient was subsequent admitted to the hospital. He was loaded in the ER with IV levetiracetam thousand milligrams twice a day. We will check his levetiracetam blood level tomorrow morning. The patient will undergo routine EEG for further assessment. It is unclear whether these 2 events are related to her history of seizures in the past. His neurological examination reveals evidence of left- sided spastic hemiparesis from his previous stroke. We will continue close neurological follow-up of this patient. We will adjust his levetiracetam blood level if needed. His Keppra blood level is still pending today. He did undergo MRI of the brain today the results which are noted above. There is no evidence of new or acute areas of stroke. His routine EEG was reviewed and fails to reveal any evidence of epileptic seizure focus. He may be considered for discharge home tomorrow and may follow-up in the outpatient neurology clinic in 3-4 weeks. He was advised of the [place] driving law which states he cannot drive for periods 6 months following his last seizure. His overall prognosis at this time remains very guarded. His overall prognosis at this time remains very guarded.
[2016-06-07 20:01] VITALS: RESP 16
[2016-06-08] MEDS: SODIUM CHLORIDE 0.9% 1,000 ML IV SCH ×2 (05:42→15:44)
[2016-06-08] MEDS: LEVOTHYROXINE 75 MCG TAB PO SCH (06:58)
[2016-06-08] MEDS: ASPIRIN 325 MG TAB PO SCH (08:33)
[2016-06-08 08:34] VITALS: TEMP 97
[2016-06-08] MEDS: LORATADINE 10 MG TAB PO SCH (08:34)
[2016-06-08] MEDS: FAMOTIDINE 20 MG TAB PO SCH (08:34)
[2016-06-08] MEDS: INDAPAMIDE 2.5 MG TAB PO SCH (08:34)
[2016-06-08] MEDS: cloNIDine HCL 0.1 MG TAB PO SCH (08:34)
[2016-06-08] MEDS: GABAPENTIN 300 MG CAP PO SCH ×2 (08:34→17:32)
[2016-06-08] MEDS: CHOLECALCIFEROL 1,000 UNIT TAB PO SCH (08:34)
[2016-06-08] MEDS: SERTRALINE 25 MG TAB PO SCH (08:34)
--- NOTE | 2016-06-08 08:41 | EEG ---
DATE OF SERVICE: 06/07/2016 INDICATIONS FOR EXAMINATION: This patient is a 56 -year-old male being evaluated for seizure disorder and recent stroke. AGE: 56Y EEG FINDINGS: A routine 21 channel awake digital EEG recording was accomplished utilizing the 10-20 international system with bipolar and referential montages. The background activity in the most alert resting state consists of a low to medium amplitude fairly well developed and well sustained 6-7 Hz activity over the posterior head regions. This posterior rhythm attenuates to eye opening. There is a small amount of low amplitude 18-20 Hz beta activity seen maximally over the anterior head regions. Muscle and movement artifacts were observed on a few occasions during the tracing. Hyperventilation was not performed. Photic stimulation at flash frequencies of 2-30 Hz produced a good symmetrical occipital driving response. No epileptiform discharges were seen. IMPRESSION: This EEG is moderately abnormal in a diffuse fashion due to slight slowing of the EEG background. The EEG failed to reveal any focal, lateralized or epileptiform abnormalities. Clinical correlation is recommended.
[2016-06-08] MEDS: levETIRAcetam IV 1,000 MG in SALINE 1 100ML.BAG IVPB SCH (11:28)
--- NOTE | 2016-06-08 11:34 | ECHOF ---
Referral Reason:elevated trop MEASUREMENTS -------- HEIGHT: 182.9 cm WEIGHT: 85.7 kg BP: 150/97 IVSd: 1.3 cm (0.6 - 1.1) LVIDd: 3.6 cm (3.9 - 5.3) LVPWd: 1.2 cm (0.6 - 1.1) IVSs: 1.4 cm LVIDs: 3.1 cm LVPWs: 1.1 cm Ao Diam: 3.7 cm (2.0 - 3.7) AV Cusp: 1.8 cm (1.5 - 2.6) LA Diam: 3.4 cm (2.7 - 3.8) MV EXCURSION: 18.711 mm (> 18.000) MV EF SLOPE: 118 mm/s (70 - 150) EPSS: 1.5 cm MV E Tyrell: 0.43 m/s MV DecT: 201 ms MV A Tyrell: 0.52 m/s MV E/A Ratio: 0.84 RAP: 5.00 mmHg RVSP: 21.28 mmHg FINDINGS -------- Sinus rhythm. This was a technically adequate study. There is mild concentric left ventricular hypertrophy. Overall left ventricular systolic function is low-normal with, an EF between 50 - 55 %. The right ventricle is normal in size. The left atrial size is normal. The right atrial size is normal. There is mild aortic valve sclerosis. There is no evidence of aortic regurgitation. Mild mitral annular calcification present. Mild mitral regurgitation is present. Mild tricuspid regurgitation present. There is no evidence of pulmonary hypertension. The right ventricular systolic pressure, as measured by Doppler, is 21.28mmHg. There is no pulmonic regurgitation present. The aortic root size is normal. There is no pericardial effusion. CONCLUSIONS -------- 1. There is mild concentric left ventricular hypertrophy. 2. The aortic root size is normal. 3. There is no pericardial effusion. 4. Overall left ventricular systolic function is low-normal with, an EF between 50 - 55 %. 5. There is mild aortic valve sclerosis. 6. Mild mitral annular calcification present. 7. Mild mitral regurgitation is present. 8. Mild tricuspid regurgitation present. 9. There is no evidence of pulmonary hypertension. 10. The right ventricular systolic pressure, as measured by Doppler, is 21.28mmHg. 11. There is no pulmonic regurgitation present. STEREOTYPER HELPER: Leilani Chaudhry RDCS
[2016-06-08] MEDS: MAGNESIUM SULFATE-D5W PMX 1 GM in DEXTROSE/WATER 1 100ML.BAG IVPB SCH ×2 (12:05→14:25)
--- NOTE | 2016-06-08 15:00 | P.PN ---
Subjective This patient is a 56 year old male who was seen in neurology consultation yesterday for new onset seizure and history of stroke. Patient was brought into the emergency room after he had a questionable 2 episodes of generalized seizure activity. He was seen in the ER by Dr. Galeano, and underwent a computed tomography scan of the brain. A CAT scan of the brain revealed evidence of a remote right MCA stroke. No other abnormalities were noted at the time. He was started on Keppra for seizure prophylaxis. He was up screaming admitted to hospital yesterday. His neurological examination yesterday revealed evidence of remote left-sided hemiparesis from previous stroke. He was sent for MRI of the brain today with and without gadolinium. The report of the MRI today indicates a moderate size remote insult to the right frontal lobe with associated gliosis and encephalomalacia. No enhancing lesion was identified. We reviewed the results of the MRI today with the patient. He is to continue on Keppra at this time for seizure prophylaxis. His Keppra blood level is pending today from the laboratory. He will undergo EEG today which will be reviewed. His EEG was reviewed today and fails to reveal any evidence of epileptic seizure focus. Patient may continue on Keppra at this time and have a repeat level done soon after discharge. His Keppra blood level is still pending this morning. He should continue on his current dose of Keppra even at the time of discharge. He should have a repeat level done in 1 week following his discharge home. We once again reviewed the results of his EEG and MRI with the patient in detail. His overall prognosis at this time remains guarded. Objective - Vital Signs Vital signs: Vital Signs Temp 97.0 F L 06/08/16 08:00 Pulse 79 06/08/16 11:17 Resp 16 06/08/16 11:17 BP 126/98 06/08/16 11:17 Pulse Ox 98 06/08/16 11:17 Intake & Output 06/07/16 06/08/16 06/08/16 18:59 06:59 18:59 Intake Total 1000 Output Total 2325 3550 2450 Balance -2565 -1000 -9480 Weight 85 kg Intake: IV 1000 Sodium Chloride 0.9% 1, 1000 000 ml @ 100 mls/hr IV . Q10H [facility] Rx#:[id number] Output: Urine 2324 3550 2450 Other: Voiding Method Urinal # Voids 1 # Bowel Movements 2 - Exam Physical examination: PHYSICAL EXAMINATION: Patient is resting comfortably in bed. VITAL SIGNS: Blood pressure is [126/98]. Heart rate is [79]. Respiration is [16] . Temperature is [97.2]. HEENT: Head is atraumatic, neck is supple, there were no carotid bruits. CHEST: Lungs are clear to auscultation and percussion. CARDIAC: S1, S2 normal rate and rhythm. There is no murmur. ABDOMEN: Soft and nontender. Bowel sounds are present. EXTREMITIES: There is no pedal edema. Peripheral pulses are present. Neurological examination: Patient's neurological examination is unchanged from yesterday. - Labs CBC & Chem 7: 06/07/16 05:52 06/07/16 10:17 Assessment and Plan (1) Chronic right arterial ischemic stroke, MCA (middle cerebral artery) Status: Acute Code(s): I69.30 - UNSPECIFIED SEQUELAE OF CEREBRAL INFARCTION (2) Complex partial epilepsy Status: Acute Code(s): G40.209 - LOCAL-REL SYMPTC EPI W CMPLX PRT SEIZ,NOT NTRCT,W/O STAT EPI (3) New onset seizure Status: Acute Code(s): R56.9 - UNSPECIFIED CONVULSIONS Plan: This patient is a 56-year-old male with a history of right MCA stroke which she suffered in 2013. He has been left with residual left-sided hemiparesthesias. Apparently today he had 2 generalized seizures. These are witnessed by his significant other. Patient was brought by EMS to the emergency room where he was only admitted to Hospital. And when his computed tomography scan of the brain was reported negative for any acute changes. There was evidence of an old right MCA stroke. No evidence of acute hemorrhage. The patient was subsequent admitted to the hospital. He was loaded in the ER with IV levetiracetam thousand milligrams twice a day. We will check his levetiracetam blood level tomorrow morning. The patient will undergo routine EEG for further assessment. It is unclear whether these 2 events are related to her history of seizures in the past. His neurological examination reveals evidence of left- sided spastic hemiparesis from his previous stroke. We will continue close neurological follow-up of this patient. We will adjust his levetiracetam blood level if needed. His Keppra blood level is still pending today. Patient to be maintained on current dose of Keppra. He will most likely need a repeat level done a week after discharge home. He did undergo MRI of the brain today the results which are noted above. There is no evidence of new or acute areas of stroke. His routine EEG was reviewed and fails to reveal any evidence of epileptic seizure focus. He may be considered for discharge home tomorrow and may follow-up in the outpatient neurology clinic in 3-4 weeks. He was advised of the [place] driving law which states he cannot drive for periods 6 months following his last seizure. Patient being considered for possible discharge later today. He may follow-up in the outpatient neurology clinic in 3-4 weeks. His overall prognosis at this time remains very guarded. His overall prognosis at this time remains very guarded.
--- NOTE | 2016-06-08 15:58 | P.PN ---
Subjective This is a pleasant 56-year-old gentleman with a past medical history significant for CVA was brought to the hospital after he had seizure at home. The patient had 3 episodes of seizure at home. The seizure was witnessed by family members.We get involved in the care of the patient because the cardiac enzymes were checked and came in to be slightly abnormal. The EKG showed sinus rhythm with old inferior ME and no acute ischemic changes. The patient does not recall having any chest pain or discomfort or difficulty breathing. He is a poor historian overall.He does not have any diabetes or hypertension or dyslipidemia nor coronary artery disease.He does smoke about three quarters of a pack per day.He does have a family history of coronary artery disease. Dr. Gutierrez's recommendation was to consider conservative medical management at this point in view of the absence of chest discomfort and EKG changes. Troponins were also negative. Echocardiogram with Doppler study was performed which revealed an ejection fraction of 50-55%. Objective - Vital Signs Vital signs: Vital Signs Temp 97.0 F L 06/08/16 08:00 Pulse 79 06/08/16 11:17 Resp 16 06/08/16 11:17 BP 126/98 06/08/16 11:17 Pulse Ox 98 06/08/16 11:17 Intake & Output 06/07/16 06/08/16 06/08/16 18:59 06:59 18:59 Intake Total 1000 520 Output Total 2325 3550 2900 Balance -2325 -2550 -2380 Weight 85 kg Intake: IV 1000 Sodium Chloride 0.9% 1, 1000 000 ml @ 100 mls/hr IV . Q10H [facility] Rx#:[id number] Oral 520 Output: Urine 2325 3550 2900 Other: Voiding Method Urinal # Voids 1 # Bowel Movements 2 - Exam PHYSICAL EXAMINATION: HEENT: Head is atraumatic, normocephalic. Pupils equal, round. Neck is supple. There is no elevated jugular venous pressure. HEART EXAMINATION: Heart S1, S2 normal. No murmur or gallop heard. CHEST EXAMINATION: Lungs are clear to auscultation and precussion. No chest wall tenderness is noted on palpation or with deep breathing. ABDOMEN: Soft, nontender. Bowel sounds are heard. No organomegaly noted. EXTREMITIES: 2+ peripheral pulses with no evidence of peripheral edema and no calf tenderness noted. NEUROLOGIC patient is awake, alert and oriented -3. . - Labs CBC & Chem 7: 06/07/16 05:52 06/07/16 10:17 Assessment and Plan (1) Recurrent seizures Status: Acute (2) Nicotine addiction Status: Acute (3) Chronic right arterial ischemic stroke, MCA (middle cerebral artery) Status: Acute Plan: From cardiology's perspective, patient may be able to be discharged home once cleared by the primary and by neurology. We'll make him a follow-up appointment to see Dr. Gutierrez in the office post discharge, outpatient stress testing and will be performed. DNP note has been reviewed, I agree with a documented findings and plan of care. Patient was seen and examined.
[2016-06-08 17:37] VITALS: BP 153/90; PULSE 80
--- NOTE | 2016-06-08 18:29 | P.DS ---
Providers Date of admission: 06/06/16 12:26 Attending physician: Gabrielle May Consults: 06/06/16 18:31 Consult Physician Routine Consulting Provider: Dania Kennedy Consult Reason/Comments: elevated trop Do you want consulting provider notified?: Yes [facility] Course: 56 year old gentleman with previous history of right-sided CVA with left-sided deficits comes in to the hospital with an episode of seizure. Patient apparently was seen by Dr. Kraus for 2 other episodes of seizures in the last 3 months. Patient was started on aspirin at that time. No seizure medications were initiated. Patient comes in the hospital with this episode of seizure activity as described by his girlfriend for about 30 seconds with the significant left- sided shaking. Patient was thereafter unconscious and was confused for a short duration. Patient denies having any recent headaches she fevers chills nausea vomiting diarrhea urinary urgency abdominal pain. Patient does have a history of carotid disease which is apparently attributed to his previous stroke. Patient has a contracted arm on the left upper extremity and a foot drop which was residual symptoms. does take tramadol for pain control apparently took about 4 tramadol within a period of one hour on 06/05/2016 this is a few hours prior to the onset of episode. 06/08/16 doing well no recurrent seizure episodes denies having headaches, blurry vision, cp, nausea, vomiting. Physical exam Gen. appearance oriented 3 in no distress Neck is supple no JVD Lungs good air entry clear to auscultation no rhonchi or wheezing Heart S1-S2 heard regular rate and rhythm no murmurs appreciated Abdomen is soft nontender no organomegaly bowel sounds are intact Neurologically cranial nerves II-12 grossly intact contracted left upper arm however strength appears to be 2-3 out of 5 left lower extremity strength is 5 out of 5 except for left foot drop right upper and lower x-ray strength is 5 out of 5 Skin no abnormalities appreciated Assessment and Plan Plan: #1 generalized seizure disorder patient does have significant foci for seizure activity from the previous stroke however patient has been taking excessive amounts of tramadol which may be the underlying etiology for it, IT has been shown to potentiate seizure activity d/c tramadol eeg was negative continue keppra at this time MRI didnot reveal acute abnormalities. #2 history of previous right MCA infarct with left-sided deficits #3 ongoing tobacco use #4 history of hypertension #5 peripheral neuropathy #6 dyslipidemia #7 significant PAD #8 dyslipidemia 9. Troponin leak liekly sec to above, however has risk factors, and ekg changes , outpatient stress test recommended. Patient Condition at Discharge: Fair Plan - Discharge Summary New Discharge Prescriptions: HYDROcodone/APAP 7.5-325MG [[place] 7.5-325] 1 each PO Q8H PRN #40 tab PRN Reason: Moderate Pain levETIRAcetam [Keppra] 1,000 mg PO Q12HR #60 tab Discharge Medication List Gabapentin [Neurontin] 300 mg PO TID 01/04/15 [History] Indapamide [Lozol] 2.5 mg PO QAM 01/04/15 [History] Loratadine [Claritin] 10 mg PO QAM 01/04/15 [History] Potassium Chloride [Klor-Con 20] 20 meq PO DAILY 01/04/15 [History] Ranitidine HCl [Zantac] 150 mg PO DAILY 01/04/15 [History] cloNIDine HCL [Catapres] 0.1 mg PO BID 01/04/15 [History] Aspirin 325 mg PO DAILY 06/06/16 [History] Cholecalciferol [Vitamin D3] 1,000 unit PO DAILY 06/06/16 [History] Cyclobenzaprine [Flexeril] 10 mg PO TID 06/06/16 [History] Levothyroxine Sodium [Synthroid] 150 mcg PO DAILY 06/06/16 [History] Sertraline [Zoloft] 25 mg PO BID 06/06/16 [History] HYDROcodone/APAP 7.5-325MG [[place] 7.5-325] 1 each PO Q8H PRN #40 tab 06/08/16 [ Rx] levETIRAcetam [Keppra] 1,000 mg PO Q12HR #60 tab 06/08/16 [Rx] Follow up Appointment(s)/Referral(s): Francisco Dobbs MD [STAFF PHYSICIAN] - 06/16/16 10:15 am Salvatore Rodriguez DO [Primary Care Provider] - 06/14/16 8:00 am (Cristina Hinton [employer] WORK[employer] appointment. Ronna Snyder off for two weeks. ) Patient Instructions/Handouts: New-Onset Seizure in Adults (DC) Discharge Disposition: HOME SELF-CARE
== END 2016-06-08 18:28 | disposition home health service (06) | DRG 101 ==
LOC: EC 09:53 → 6SEL 12:26
PROVIDERS: ADMIT Hospitalist; ATTEND Hospitalist
DX: G40.209 Localization-related (focal) (partial) symptomatic epilepsy and epileptic syndromes with complex partial seizures, not intractable, without status epilepticus (principal); G93.89 Other specified disorders of brain; I69.354 Hemiplegia and hemiparesis following cerebral infarction affecting left non-dominant side; I10 Essential (primary) hypertension; M21.372 Foot drop, left foot; F17.200 Nicotine dependence, unspecified, uncomplicated; E78.5 Hyperlipidemia, unspecified; G62.9 Polyneuropathy, unspecified; F32.9 Major depressive disorder, single episode, unspecified; E07.9 Disorder of thyroid, unspecified; I73.9 Peripheral vascular disease, unspecified; F41.9 Anxiety disorder, unspecified; I25.2 Old myocardial infarction; Z79.82 Long term (current) use of aspirin; Z79.899 Other long term (current) drug therapy; Z82.0 Family history of epilepsy and other diseases of the nervous system
CPT/HCPCS: 36415; 70450; 70553; 80053; 80320; 82550; 82553; 83520; 83735; 84100; 84439; 84443; 84484; 85025; 85610; 85730; 93005; 93306; 94760; 95816; 96361; 96374; 99285

== ENCOUNTER 2016-07-24 23:26 | Emergency (ER) | payer OTHER ==
[2016-07-24] MEDS ORDERED: SODIUM CHLORIDE 0.9% 1,000 ML IV STA (23:34)
[2016-07-24] MEDS ORDERED: levETIRAcetam IV 1,000 MG in SALINE 1 100ML.BAG IVPB STA (23:34)
[2016-07-24 23:35] VITALS: TEMP 99.9
--- NOTE | 2016-07-24 23:36 | ED ---
General Adult HPI - General Chief complaint: Seizure Stated complaint: Seizure Time Seen by Provider: 07/24/16 23:31 Source: patient, EMS, RN notes reviewed, old records reviewed Mode of arrival: EMS Limitations: altered mental status - History of Present Illness Initial comments: This is a 56-year-old male the ER for evaluation of altered mental status, back- to-back seizures. Patient has history of epilepsy, history of seizures secondary to CVA. Patient does have left-sided deficits from CVA. Patient's been taking her medication as prescribed for himself. Patient's poor historian at this time, history patient EMS, patient's chart and family who called EMS secondary to the seizure. - Related Data Home Medications Medication Instructions Recorded Confirmed Gabapentin [Neurontin] 300 mg PO TID 01/04/15 07/24/16 Indapamide [Lozol] 2.5 mg PO QAM 01/04/15 07/24/16 Loratadine [Claritin] 10 mg PO QAM 01/04/15 07/24/16 Potassium Chloride [Klor-Con 20] 20 meq PO DAILY 01/04/15 07/24/16 Ranitidine HCl [Zantac] 150 mg PO DAILY 01/04/15 07/24/16 cloNIDine HCL [Catapres] 0.1 mg PO BID 01/04/15 07/24/16 Aspirin 325 mg PO DAILY 06/06/16 07/24/16 Cholecalciferol [Vitamin D3] 1,000 unit PO DAILY 06/06/16 07/24/16 Cyclobenzaprine [Flexeril] 10 mg PO TID 06/06/16 07/24/16 Levothyroxine Sodium [Synthroid] 150 mcg PO DAILY 06/06/16 07/24/16 Sertraline [Zoloft] 25 mg PO BID 06/06/16 07/24/16 Previous Rx's Medication Instructions Recorded HYDROcodone/APAP 7.5-325MG [[place] 1 each PO Q8H PRN #40 tab 06/08/16 7.5-325] levETIRAcetam [Keppra] 1,000 mg PO Q12HR #60 tab 06/08/16 levETIRAcetam [Keppra] 500 mg PO BID #60 tab 07/25/16 Allergies Allergy/AdvReac Type Severity Reaction Status Date / Time No Known Allergies Allergy Verified 07/24/16 23:37 Review of Systems ROS Statement: Those systems with pertinent positive or pertinent negative responses have been documented in the HPI. ROS Other: All systems not noted in ROS Statement are negative. Past Medical History Past Medical History: CVA/TIA, Hyperlipidemia, Hypertension, Thyroid Disorder Additional Past Medical History / Comment(s): Left sided weakness from CVA in 2014. History of Any Multi-Drug Resistant Organisms: None Reported Past Surgical History: No Surgical Hx Reported Past Anesthesia/Blood Transfusion Reactions: No Reported Reaction Additional Past Anesthesia/Blood Transfusion Reaction / Comment(s): NEVER HAD ANESTHESIA. Past Psychological History: Anxiety, Depression Smoking Status: Current every day smoker Past Alcohol Use History: None Reported Past Drug Use History: None Reported - Past Family History Father Family Medical History: Congestive Heart Failure (CHF) Additional Family Medical History / Comment(s): Parkinsons Mother Family Medical History: Cancer General Exam Limitations: altered mental status General appearance: alert, in no apparent distress Head exam: Present: atraumatic, normocephalic, normal inspection Eye exam: Present: normal appearance, PERRL, EOMI. Absent: scleral icterus, conjunctival injection, periorbital swelling ENT exam: Present: normal exam, mucous membranes moist Neck exam: Present: normal inspection. Absent: tenderness, meningismus, lymphadenopathy Respiratory exam: Present: normal lung sounds bilaterally. Absent: respiratory distress, wheezes, rales, rhonchi, stridor Cardiovascular Exam: Present: normal rhythm, tachycardia, normal heart sounds. Absent: systolic murmur, diastolic murmur, rubs, gallop, clicks GI/Abdominal exam: Present: soft, normal bowel sounds. Absent: distended, tenderness, guarding, rebound, rigid Extremities exam: Present: normal inspection, full ROM, normal capillary refill. Absent: tenderness, pedal edema, joint swelling, calf tenderness Back exam: Present: normal inspection Neurological exam: Present: alert, oriented X3, CN II-XII intact Psychiatric exam: Present: normal affect, normal mood Skin exam: Present: warm, dry, intact, normal color. Absent: rash Course Vital Signs 07/24/16 07/25/16 07/25/16 23:29 00:15 01:25 Temperature 99.9 F H Pulse Rate 110 H 82 83 Respiratory 18 18 Rate Blood Pressure 171/114 148/94 137/84 O2 Sat by Pulse 96 97 95 Oximetry 07/25/16 03:48 Temperature Pulse Rate Respiratory 71 H Rate Blood Pressure 155/107 O2 Sat by Pulse 95 Oximetry EKG Findings - EKG Comments: EKG Findings:: EKG shows sinus tachycardia rate 107, SD 18, QRS 106, QTC 475 Medical Decision Making - Medical Decision Making 56 male to ED with recurrent seizure, no seizures while in ED, back to baseline mental stae,ok for discharge - Lab Data Result diagrams: 07/24/16 23:45 07/24/16 23:45 Lab Results 07/24/16 07/24/16 07/24/16 Range/Units 23:45 23:45 23:45 WBC 12.1 H (3.8-10.6) k/uL RBC 5.23 (4.30-5.90) m/uL Hgb 15.6 (13.0-17.5) gm/dL Hct 46.7 (39.0-53.0) % MCV 89.3 (80.0-100.0) fL MCH 29.8 (25.0-35.0) pg MCHC 33.4 (31.0-37.0) g/dL RDW 14.1 (11.5-15.5) % Plt Count 270 (150-450) k/uL Neutrophils % 57 % Lymphocytes % 36 % Monocytes % 3 % Eosinophils % 2 % Basophils % 1 % Neutrophils # 6.9 (1.3-7.7) k/uL Lymphocytes # 4.4 (1.0-4.8) k/uL Monocytes # 0.4 (0-1.0) k/uL Eosinophils # 0.2 (0-0.7) k/uL Basophils # 0.1 (0-0.2) k/uL Sodium 142 (137-145) mmol/L Potassium 3.4 L (3.5-5.1) mmol/L Chloride 104 (98-107) mmol/L Carbon Dioxide 8 L* (22-30) mmol/L Anion Gap 30 mmol/L BUN 9 (9-20) mg/dL Creatinine 1.40 H (0.66-1.25) mg/dL Est GFR (MDRD) Af Amer >60 (>60 ml/min/1.73 sqM) Est GFR (MDRD) Non-Af 52 (>60 ml/min/1.73 sqM) Glucose 140 H (74-99) mg/dL Calcium 11.1 H (8.4-10.2) mg/dL Total Bilirubin 0.4 (0.2-1.3) mg/dL AST 38 (17-59) U/L ALT 24 (21-72) U/L Alkaline Phosphatase 79 (38-126) U/L Total Protein 7.3 (6.3-8.2) g/dL Albumin 4.9 (3.5-5.0) g/dL Urine Color Urine Appearance (Clear) Urine pH (5.0-8.0) Ur Specific Clear (1.001-1.035) Urine Protein (Negative) Urine Glucose (UA) (Negative) Urine Ketones (Negative) Urine Blood (Negative) Urine Nitrite (Negative) Urine Bilirubin (Negative) Urine Urobilinogen (<2.0) mg/dL Ur Leukocyte Esterase (Negative) Urine Opiates Screen (NotDetected) Ur Oxycodone Screen (NotDetected) Urine Methadone Screen (NotDetected) Ur Propoxyphene Screen (NotDetected) Ur Barbiturates Screen (NotDetected) Phenytoin <3.0 ug/mL Valproic Acid <10.0 ug/mL Carbamazepine <3.0 ug/mL U Tricyclic Antidepress (NotDetected) Levetiracetam 13.3 (3.0-60.0) ug/mL Ur Phencyclidine Scrn (NotDetected) Ur Amphetamines Screen (NotDetected) U Methamphetamines Scrn (NotDetected) U Benzodiazepines Scrn (NotDetected) Urine Cocaine Screen (NotDetected) U Marijuana (THC) Screen (NotDetected) Serum Alcohol <10 mg/dL 07/24/16 Range/Units 23:49 WBC (3.8-10.6) k/uL RBC (4.30-5.90) m/uL Hgb (13.0-17.5) gm/dL Hct (39.0-53.0) % MCV (80.0-100.0) fL MCH (25.0-35.0) pg MCHC (31.0-37.0) g/dL RDW (11.5-15.5) % Plt Count (150-450) k/uL Neutrophils % % Lymphocytes % % Monocytes % % Eosinophils % % Basophils % % Neutrophils # (1.3-7.7) k/uL Lymphocytes # (1.0-4.8) k/uL Monocytes # (0-1.0) k/uL Eosinophils # (0-0.7) k/uL Basophils # (0-0.2) k/uL Sodium (137-145) mmol/L Potassium (3.5-5.1) mmol/L Chloride (98-107) mmol/L Carbon Dioxide (22-30) mmol/L Anion Gap mmol/L BUN (9-20) mg/dL Creatinine (0.66-1.25) mg/dL Est GFR (MDRD) Af Amer (>60 ml/min/1.73 sqM) Est GFR (MDRD) Non-Af (>60 ml/min/1.73 sqM) Glucose (74-99) mg/dL Calcium (8.4-10.2) mg/dL Total Bilirubin (0.2-1.3) mg/dL AST (17-59) U/L ALT (21-72) U/L Alkaline Phosphatase (38-126) U/L Total Protein (6.3-8.2) g/dL Albumin (3.5-5.0) g/dL Urine Color Light Yellow Urine Appearance Clear (Clear) Urine pH 6.0 (5.0-8.0) Ur Specific Clear 1.008 (1.001-1.035) Urine Protein Trace H (Negative) Urine Glucose (UA) Negative (Negative) Urine Ketones 1+ H (Negative) Urine Blood Negative (Negative) Urine Nitrite Negative (Negative) Urine Bilirubin Negative (Negative) Urine Urobilinogen <2.0 (<2.0) mg/dL Ur Leukocyte Esterase Negative (Negative) Urine Opiates Screen Detected H (NotDetected) Ur Oxycodone Screen Not Detected (NotDetected) Urine Methadone Screen Not Detected (NotDetected) Ur Propoxyphene Screen Not Detected (NotDetected) Ur Barbiturates Screen Not Detected (NotDetected) Phenytoin ug/mL Valproic Acid ug/mL Carbamazepine ug/mL U Tricyclic Antidepress Not Detected (NotDetected) Levetiracetam (3.0-60.0) ug/mL Ur Phencyclidine Scrn Not Detected (NotDetected) Ur Amphetamines Screen Not Detected (NotDetected) U Methamphetamines Scrn Not Detected (NotDetected) U Benzodiazepines Scrn Not Detected (NotDetected) Urine Cocaine Screen Not Detected (NotDetected) U Marijuana (THC) Screen Not Detected (NotDetected) Serum Alcohol mg/dL Disposition Clinical Impression: Generalized seizure, Epileptic seizure Disposition: HOME SELF-CARE Condition: Good Instructions: Recurrent Seizures in Adults (ED) Prescriptions: levETIRAcetam [Keppra] 500 mg PO BID #60 tab Referrals: Salvatore Rodriguez DO [Primary Care Provider] - 1-2 days
[2016-07-24 23:59] LABS: Basophils # (A) 0.1 k/uL (0-0.2); Basophils % (A) 1 %; CH 29.8; CHCM 33.4; Eosinophils # (A) 0.2 k/uL (0-0.7); Eosinophils % (A) 2 %; HCT 46.7 % (39.0-53.0); HDW 2.37; HGB 15.6 gm/dL (13.0-17.5); Luc % (Auto) 2; Lymphocytes # (A) 4.4 k/uL (1.0-4.8); Lymphocytes % (A) 36 %; MCH 29.8 pg (25.0-35.0); MCHC 33.4 g/dL (31.0-37.0); MCV 89.3 fL (80.0-100.0); Mean Platelet Volume 7.2; Monocytes # (A) 0.4 k/uL (0-1.0); Monocytes % (A) 3 %; Neutrophils # (A) 6.9 k/uL (1.3-7.7); Neutrophils % (A) 57 %; RBC 5.23 m/uL (4.30-5.90); RDW 14.1 % (11.5-15.5); WBC 12.1 k/uL (3.8-10.6); WBC (Perox) 11.77
[2016-07-25 00:05] LABS: Appearance,Urine Clear (Clear); Bilirubin,Urine Negative (Negative); Glucose,Urine (UA) Negative (Negative); Ketones,Urine 1+ (Negative); Leukocyte Esterase,Urine Negative (Negative); Nitrite,Urine Negative (Negative); Protein,Urine Trace (Negative); Specific Gravity,Urine 1.008 (1.001-1.035); UA Billing (MACRO vs. MICRO) CHEM; Urobilinogen,Urine <2.0 mg/dL (<2.0)
[2016-07-25 00:12] LABS: ALT 24 U/L (21-72); Alcohol <10 mg/dL; Alkaline Phosphatase 79 U/L (38-126); Blood Urea Nitrogen 9 mg/dL (9-20); Calcium 11.1 mg/dL (8.4-10.2); Carbamazepine (Tegretol) <3.0 ug/mL; Chloride 104 mmol/L (98-107); Glucose 140 mg/dL (74-99); Non-African American GFR(MDRD) 52 (>60 ml/min/1.73 sqM); Potassium 3.4 mmol/L (3.5-5.1); Sodium 142 mmol/L (137-145); Total Bilirubin 0.4 mg/dL (0.2-1.3); Total Protein 7.3 g/dL (6.3-8.2)
[2016-07-25 00:14] LABS: Anion Gap 30 mmol/L
[2016-07-25 00:15] LABS: AST 38 U/L (17-59)
[2016-07-25 00:20] LABS: Carbon Dioxide 8 mmol/L (22-30)
[2016-07-25] MEDS ORDERED: SODIUM CHLORIDE 0.9% 1,000 ML IV STA (00:22)
[2016-07-25] MEDS ORDERED: POTASSIUM BICARB-CITRIC ACID 25 MEQ TABLET.EFF PO STA (00:26)
[2016-07-25] MEDS ORDERED: levETIRAcetam 500 MG TAB PO STA (00:26)
[2016-07-25] MEDS ORDERED: LORazepam 2 MG/ML SYRINGE IV STA (00:27)
[2016-07-25 01:27] VITALS: PULSE 83
[2016-07-25 03:49] VITALS: BP 155/107; RESP 71
[2016-07-25] MEDS ORDERED: cloNIDine HCL 0.1 MG TAB PO STA (04:15)
== END 2016-07-25 04:55 | disposition home or self-care (01) ==
LOC: EC 23:26
DX: G40.909 Epilepsy, unspecified, not intractable, without status epilepticus (principal); R00.0 Tachycardia, unspecified; E78.5 Hyperlipidemia, unspecified; I10 Essential (primary) hypertension; E07.9 Disorder of thyroid, unspecified; F41.9 Anxiety disorder, unspecified; F32.9 Major depressive disorder, single episode, unspecified; F17.200 Nicotine dependence, unspecified, uncomplicated; Z86.73 Personal history of transient ischemic attack (TIA), and cerebral infarction without residual deficits; Z79.82 Long term (current) use of aspirin; Z79.899 Other long term (current) drug therapy
CPT/HCPCS: 99284; 96365; 96375; 96361 ×2; 36415; 93005; 80156; 80164; 80053; 80177; 80185; 85025; 81003; 80306; 80320; J2060; J1953

== ENCOUNTER 2016-08-09 21:09 | Emergency (ER) | payer OTHER ==
[2016-08-09 21:27] VITALS: RESP 16
[2016-08-09 21:34] VITALS: TEMP 98.2
[2016-08-09] MEDS ORDERED: SODIUM CHLORIDE 0.9% 1,000 ML IV STA (21:34)
[2016-08-09] MEDS ORDERED: LORazepam 2 MG/ML SYRINGE IV STA (21:37)
--- NOTE | 2016-08-09 21:43 | ED ---
General Adult HPI - General Chief complaint: Neuro Symptoms/Deficit Stated complaint: Neuro Defecit Time Seen by Provider: 08/09/16 21:19 Source: patient, EMS Mode of arrival: EMS Limitations: no limitations - History of Present Illness Initial comments: This 56-year-old white male presents with a complaint of some left arm numbness and tingling. He states that this came on shortly prior to arrival. He apparently got freaked out as he thought that he might have a seizure. He apparently has a history of previous stroke in 2013 with subsequent left-sided partial paralysis of the upper extremity and lower extremity. He also was in the hospital a couple of weeks ago. He apparently was taking some Ultram and had a seizure. He apparently got very anxious tonight and was hyperventilating upon EMS arrival. He apparently is worried about having another seizure or stroke. He has somewhat limited history as he is very poor historian. His significant other later does present and gives additional history. He denies any other complaints or modifying factors. - Related Data Home Medications Medication Instructions Recorded Confirmed Gabapentin [Neurontin] 300 mg PO TID 01/04/15 08/09/16 Indapamide [Lozol] 2.5 mg PO QAM 01/04/15 08/09/16 Loratadine [Claritin] 10 mg PO QAM 01/04/15 08/09/16 Potassium Chloride [Klor-Con 20] 20 meq PO DAILY 01/04/15 08/09/16 cloNIDine HCL [Catapres] 0.1 mg PO TID 01/04/15 08/09/16 Cholecalciferol [Vitamin D3] 1,000 unit PO DAILY 06/06/16 08/09/16 Sertraline [Zoloft] 25 mg PO DAILY 06/06/16 08/09/16 Aspirin EC [Ecotrin Low Dose] 81 mg PO DAILY 08/09/16 08/09/16 Gabapentin [Neurontin] 300 mg PO TID 08/09/16 08/09/16 HYDROcodone/APAP 10-325MG [[place] 1 tab PO BID PRN 08/09/16 08/09/16 10-325] Ibuprofen [Motrin] 800 mg PO BID PRN 08/09/16 08/09/16 Levothyroxine Sodium [Synthroid] 200 mcg PO QAM 08/09/16 08/09/16 Previous Rx's Medication Instructions Recorded levETIRAcetam [Keppra] 500 mg PO BID #60 tab 07/25/16 ALPRAZolam [Xanax] 0.25 mg PO TID PRN #10 tab 08/09/16 Gabapentin [Neurontin] 300 mg PO TID #21 cap 08/09/16 Allergies Allergy/AdvReac Type Severity Reaction Status Date / Time tramadol [From Ultram] AdvReac Seizures Verified 08/09/16 22:45 Review of Systems ROS Statement: Those systems with pertinent positive or pertinent negative responses have been documented in the HPI. ROS Other: All systems not noted in ROS Statement are negative. Past Medical History Past Medical History: CVA/TIA, Hyperlipidemia, Hypertension, Thyroid Disorder Additional Past Medical History / Comment(s): Left sided weakness from CVA in 2013. History of Any Multi-Drug Resistant Organisms: None Reported Past Surgical History: No Surgical Hx Reported Past Anesthesia/Blood Transfusion Reactions: No Reported Reaction Additional Past Anesthesia/Blood Transfusion Reaction / Comment(s): NEVER HAD ANESTHESIA. Past Psychological History: Anxiety, Depression Smoking Status: Current every day smoker Past Alcohol Use History: None Reported Past Drug Use History: None Reported - Past Family History Father Family Medical History: Congestive Heart Failure (CHF) Additional Family Medical History / Comment(s): Parkinsons Mother Family Medical History: Cancer General Exam - General Exam Comments Initial Comments: GENERAL: The patient is well nourished and well hydrated. VITAL SIGNS: Heart rate, blood pressure, respiratory rate reviewed as recorded in nurse's notes. EYES: Pupils are round and reactive. Extraocular movements are intact. No conjunctival / lid redness or swelling. ENT: No external evidence of injury, swelling, or ecchymosis. Airway is patent. Throat is clear. NECK: Nontender. No swelling or evidence of injury. No subcutaneous emphysema. Trachea is midline. No thyroid mass. HEART: Regular rate and rhythm. Good peripheral pulses. LUNGS/CHEST: Breath sounds clear and equal bilaterally. No rales, rhonchi, or wheezes. No ecchymosis, subcutaneous emphysema, or tenderness. ABDOMEN: Abdomen soft without tenderness. No palpable masses or organomegaly. No peritoneal signs. No abdominal wall swelling or ecchymosis. EXTREMITIES: No extremity tenderness. There is left upper extremity and left lower extremity weakness which is chronic and unchanged from normal. No thoracolumbar tenderness. NEUROLOGIC: Sensation is grossly intact. Cranial nerve exam reveals face is symmetrical, tongue is midline, speech is clear. SKIN: No abrasions or ecchymosis is noted. No induration or masses noted. PSYCHIATRIC: Alert and oriented. Slightly slow with responses. Limitations: no limitations Course Vital Signs 08/09/16 08/09/16 08/09/16 21:13 21:28 21:37 Temperature 98.3 F 98.2 F 98.2 F Pulse Rate 75 65 61 Respiratory 16 16 16 Rate Blood Pressure 159/92 150/84 O2 Sat by Pulse 96 97 96 Oximetry 08/09/16 22:31 Temperature Pulse Rate 58 L Respiratory 16 Rate Blood Pressure 146/99 O2 Sat by Pulse 96 Oximetry Medical Decision Making - Medical Decision Making The patient was seen and examined. All diagnostics were reviewed. A computed tomography scan of the brain was done and this does not show any acute process. It does show evidence of an old CVA. The laboratory was all essentially within normal limits. He did receive some Ativan as well as some IV fluids. He is in no distress on recheck. Overall, it is felt as though he was having an anxiety reaction. It appears to be resolved at this time. He is not complaining of any further left arm numbness. The arm numbness had resolved on initial evaluation. His significant other relates that he has run out of his Neurontin and is requesting a refill of this until they can get in to see their doctor as well. It is felt as though he is stable for discharge with close follow-up. - Lab Data Result diagrams: 08/09/16 21:24 08/09/16 21:24 Lab Results 08/09/16 08/09/16 08/09/16 Range/Units 21:24 21:24 21:24 WBC 8.0 (3.8-10.6) k/uL RBC 4.69 (4.30-5.90) m/uL Hgb 14.2 (13.0-17.5) gm/dL Hct 40.4 (39.0-53.0) % MCV 86.2 (80.0-100.0) fL MCH 30.3 (25.0-35.0) pg MCHC 35.2 (31.0-37.0) g/dL RDW 14.4 (11.5-15.5) % Plt Count 213 (150-450) k/uL Neutrophils % 46 % Lymphocytes % 45 % Monocytes % 4 % Eosinophils % 2 % Basophils % 1 % Neutrophils # 3.7 (1.3-7.7) k/uL Lymphocytes # 3.6 (1.0-4.8) k/uL Monocytes # 0.3 (0-1.0) k/uL Eosinophils # 0.2 (0-0.7) k/uL Basophils # 0.1 (0-0.2) k/uL PT (9.0-12.0) sec INR (<1.1) APTT (22.0-30.0) sec Sodium 143 (137-145) mmol/L Potassium 4.0 (3.5-5.1) mmol/L Chloride 107 (98-107) mmol/L Carbon Dioxide 24 (22-30) mmol/L Anion Gap 12 mmol/L BUN 9 (9-20) mg/dL Creatinine 0.84 (0.66-1.25) mg/dL Est GFR (MDRD) Af Amer >60 (>60 ml/min/1.73 sqM) Est GFR (MDRD) Non-Af >60 (>60 ml/min/1.73 sqM) Glucose 91 (74-99) mg/dL Calcium 10.1 (8.4-10.2) mg/dL Total Bilirubin 0.5 (0.2-1.3) mg/dL AST 34 (17-59) U/L ALT 35 (21-72) U/L Alkaline Phosphatase 85 (38-126) U/L Total Creatine Kinase 94 (55-170) U/L CK-MB (CK-2) 0.8 (0.0-2.4) ng/mL CK-MB (CK-2) Rel Index 0.9 Troponin I <0.012 (0.000-0.034) ng/mL Total Protein 7.1 (6.3-8.2) g/dL Albumin 4.4 (3.5-5.0) g/dL 08/09/16 Range/Units 21:24 WBC (3.8-10.6) k/uL RBC (4.30-5.90) m/uL Hgb (13.0-17.5) gm/dL Hct (39.0-53.0) % MCV (80.0-100.0) fL MCH (25.0-35.0) pg MCHC (31.0-37.0) g/dL RDW (11.5-15.5) % Plt Count (150-450) k/uL Neutrophils % % Lymphocytes % % Monocytes % % Eosinophils % % Basophils % % Neutrophils # (1.3-7.7) k/uL Lymphocytes # (1.0-4.8) k/uL Monocytes # (0-1.0) k/uL Eosinophils # (0-0.7) k/uL Basophils # (0-0.2) k/uL PT 10.5 (9.0-12.0) sec INR 1.0 (<1.1) APTT 26.5 (22.0-30.0) sec Sodium (137-145) mmol/L Potassium (3.5-5.1) mmol/L Chloride (98-107) mmol/L Carbon Dioxide (22-30) mmol/L Anion Gap mmol/L BUN (9-20) mg/dL Creatinine (0.66-1.25) mg/dL Est GFR (MDRD) Af Amer (>60 ml/min/1.73 sqM) Est GFR (MDRD) Non-Af (>60 ml/min/1.73 sqM) Glucose (74-99) mg/dL Calcium (8.4-10.2) mg/dL Total Bilirubin (0.2-1.3) mg/dL AST (17-59) U/L ALT (21-72) U/L Alkaline Phosphatase (38-126) U/L Total Creatine Kinase (55-170) U/L CK-MB (CK-2) (0.0-2.4) ng/mL CK-MB (CK-2) Rel Index Troponin I (0.000-0.034) ng/mL Total Protein (6.3-8.2) g/dL Albumin (3.5-5.0) g/dL Disposition Clinical Impression: Paresthesia, Left arm numbness, Anxiety reaction Disposition: HOME SELF-CARE Condition: Good Instructions: Panic Attack (ED), Paresthesia (ED) Prescriptions: ALPRAZolam [Xanax] 0.25 mg PO TID PRN #10 tab PRN Reason: Anxiety Gabapentin [Neurontin] 300 mg PO TID #21 cap Referrals: Ed Lovell MD [Primary Care Provider] - 08/11/16 Time of Disposition: 23:09
[2016-08-09 21:49] LABS: Basophils # (A) 0.1 k/uL (0-0.2); Basophils % (A) 1 %; CH 30.6; CHCM 35.6; Eosinophils # (A) 0.2 k/uL (0-0.7); Eosinophils % (A) 2 %; HCT 40.4 % (39.0-53.0); HDW 2.35; HGB 14.2 gm/dL (13.0-17.5); Luc % (Auto) 1; Lymphocytes # (A) 3.6 k/uL (1.0-4.8); Lymphocytes % (A) 45 %; MCH 30.3 pg (25.0-35.0); MCHC 35.2 g/dL (31.0-37.0); MCV 86.2 fL (80.0-100.0); Mean Platelet Volume 7.3; Monocytes # (A) 0.3 k/uL (0-1.0); Monocytes % (A) 4 %; Neutrophils # (A) 3.7 k/uL (1.3-7.7); Neutrophils % (A) 46 %; RBC 4.69 m/uL (4.30-5.90); RDW 14.4 % (11.5-15.5); WBC (Perox) 7.77
[2016-08-09 21:59] LABS: ALT 35 U/L (21-72); AST 34 U/L (17-59); Alkaline Phosphatase 85 U/L (38-126); Anion Gap 12 mmol/L; Blood Urea Nitrogen 9 mg/dL (9-20); Calcium 10.1 mg/dL (8.4-10.2); Carbon Dioxide 24 mmol/L (22-30); Chloride 107 mmol/L (98-107); Glucose 91 mg/dL (74-99); Non-African American GFR(MDRD) >60 (>60 ml/min/1.73 sqM); Sodium 143 mmol/L (137-145); Total Bilirubin 0.5 mg/dL (0.2-1.3); Total Protein 7.1 g/dL (6.3-8.2)
[2016-08-09 22:00] LABS: Partial Thromboplastin Time 26.5 sec (22.0-30.0); Prothrombin Time 10.5 sec (9.0-12.0)
--- NOTE | 2016-08-09 22:02 | CT ---
EXAMINATION TYPE: CT brain wo con DATE OF EXAM: 08/09/2016 COMPARISON: 06/06/2016 HISTORY: Left sided numbness. History of stroke and seizure. CT DLP: 995.50 mGycm Automated exposure control for dose reduction was used. FINDINGS: There is cerebral cortical atrophy. There is old right frontal lobe cortical infarct. There is some e nlargement of the right lateral ventricle. There is no midline shift. There is no sign of intracrania l hemorrhage. The calvarium is intact. IMPRESSION: OLD LARGE RIGHT FRONTAL LOBE CORTICAL INFARCT. NO ACUTE INTRACRANIAL ABNORMALITY. NO CHANGE.
[2016-08-09 22:03] LABS: Creatine Kinase 94 U/L (55-170)
[2016-08-09 22:17] LABS: Creatine Kinase MB 0.8 ng/mL (0.0-2.4); Troponin I <0.012 ng/mL (0.000-0.034)
[2016-08-09 22:32] VITALS: BP 146/99; PULSE 58
== END 2016-08-09 23:59 | disposition home or self-care (01) ==
LOC: EC 21:09 → SUPCPDRO 21:09 → EC 23:59
DX: F41.1 Generalized anxiety disorder (principal); R20.0 Anesthesia of skin; R20.2 Paresthesia of skin; I10 Essential (primary) hypertension; E07.9 Disorder of thyroid, unspecified; F32.9 Major depressive disorder, single episode, unspecified; F17.200 Nicotine dependence, unspecified, uncomplicated; Z79.82 Long term (current) use of aspirin; Z79.899 Other long term (current) drug therapy; Z88.6 Allergy status to analgesic agent; Z86.73 Personal history of transient ischemic attack (TIA), and cerebral infarction without residual deficits
CPT/HCPCS: 36415; 80053; 82550; 82553; 84484; 85025; 85610; 85730; 70450; 99285; 96374; 96361 ×2; J2060

== ENCOUNTER 2017-03-05 12:34 | Emergency (ER) | payer OTHER ==
[2017-03-05] MEDS ORDERED: LORazepam 2 MG/ML INJ IV STA (13:04)
--- NOTE | 2017-03-05 13:08 | ED ---
General Adult HPI - General Chief complaint: Seizure Stated complaint: Muscle Spasm Time Seen by Provider: 03/05/17 12:54 Source: patient, EMS, RN notes reviewed Mode of arrival: EMS Limitations: physical limitation - History of Present Illness Initial comments: Patient is a pleasant 56-year-old male presenting to the emergency department for concern for seizure. Patient does have a known history of seizures. Patient is on Neurontin and Keppra. Patient forgot to take his Keppra this morning. Patient did take it just prior to arrival. Patient did have an episode with convulsions on his left side. Patient has had previous symptoms similarly associated with seizure. No loss of consciousness. Patient has some muscle stiffness at this time. Patient does have a history of known stroke with left-sided weakness - Related Data Home Medications Medication Instructions Recorded Confirmed Gabapentin [Neurontin] 300 mg PO TID 01/04/15 08/09/16 Indapamide [Lozol] 2.5 mg PO QAM 01/04/15 08/09/16 Loratadine [Claritin] 10 mg PO QAM 01/04/15 08/09/16 Potassium Chloride [Klor-Con 20] 20 meq PO DAILY 01/04/15 08/09/16 cloNIDine HCL [Catapres] 0.1 mg PO TID 01/04/15 08/09/16 Cholecalciferol [Vitamin D3] 1,000 unit PO DAILY 06/06/16 08/09/16 Sertraline [Zoloft] 25 mg PO DAILY 06/06/16 08/09/16 Aspirin EC [Ecotrin Low Dose] 81 mg PO DAILY 08/09/16 08/09/16 Gabapentin [Neurontin] 300 mg PO TID 08/09/16 08/09/16 HYDROcodone/APAP 10-325MG [[place] 1 tab PO BID PRN 08/09/16 08/09/16 10-325] Ibuprofen [Motrin] 800 mg PO BID PRN 08/09/16 08/09/16 Levothyroxine Sodium [Synthroid] 200 mcg PO QAM 08/09/16 08/09/16 Previous Rx's Medication Instructions Recorded levETIRAcetam [Keppra] 500 mg PO BID #60 tab 07/25/16 ALPRAZolam [Xanax] 0.25 mg PO TID PRN #10 tab 08/09/16 Gabapentin [Neurontin] 300 mg PO TID #21 cap 08/09/16 Allergies Allergy/AdvReac Type Severity Reaction Status Date / Time tramadol [From Ultram] AdvReac Seizures Verified 03/05/17 12:43 Review of Systems ROS Statement: Those systems with pertinent positive or pertinent negative responses have been documented in the HPI. ROS Other: All systems not noted in ROS Statement are negative. Constitutional: Denies: fever Eyes: Denies: eye pain ENT: Denies: ear pain Respiratory: Denies: cough Cardiovascular: Denies: chest pain Endocrine: Denies: fatigue Gastrointestinal: Denies: abdominal pain Genitourinary: Denies: dysuria Musculoskeletal: Denies: back pain Skin: Denies: rash Neurological: Reports: weakness (Chronic). Denies: headache Past Medical History Past Medical History: CVA/TIA, Hyperlipidemia, Hypertension, Thyroid Disorder Additional Past Medical History / Comment(s): Left sided weakness from CVA in 2013. History of Any Multi-Drug Resistant Organisms: None Reported Past Surgical History: No Surgical Hx Reported Past Anesthesia/Blood Transfusion Reactions: No Reported Reaction Additional Past Anesthesia/Blood Transfusion Reaction / Comment(s): NEVER HAD ANESTHESIA. Past Psychological History: Anxiety, Depression Smoking Status: Current every day smoker Past Alcohol Use History: None Reported Past Drug Use History: None Reported - Past Family History Father Family Medical History: Congestive Heart Failure (CHF) Additional Family Medical History / Comment(s): Parkinsons Mother Family Medical History: Cancer General Exam Limitations: physical limitation General appearance: alert, in no apparent distress Head exam: Present: atraumatic Eye exam: Present: normal appearance, PERRL ENT exam: Present: normal oropharynx Neck exam: Present: normal inspection Respiratory exam: Present: normal lung sounds bilaterally Cardiovascular Exam: Present: regular rate, normal rhythm GI/Abdominal exam: Present: soft. Absent: tenderness Extremities exam: Present: other (Left arm contracted) Neurological exam: Present: alert, other (Left arm contracted and weakness. Mild left leg weakness.) Psychiatric exam: Present: normal affect, normal mood Skin exam: Present: normal color Course Vital Signs 03/05/17 03/05/17 12:37 13:29 Temperature 98.2 F Pulse Rate 79 71 Respiratory 16 18 Rate Blood Pressure 175/103 159/73 O2 Sat by Pulse 99 98 Oximetry Medical Decision Making - Medical Decision Making Patient reevaluated and symptom-free. Patient updated on results and plan. Case was discussed with neurology on-call Dr. Ibarra who is comfortable with discharge the patient and have him follow-up with Dr. Dobbs beginning of the week. Patient was notified of this. - Lab Data Result diagrams: 03/05/17 12:56 03/05/17 12:56 Lab Results 03/05/17 03/05/17 Range/Units 12:56 12:56 WBC 6.0 (3.8-10.6) k/uL RBC 4.52 (4.30-5.90) m/uL Hgb 13.7 (13.0-17.5) gm/dL Hct 40.9 (39.0-53.0) % MCV 90.3 (80.0-100.0) fL MCH 30.2 (25.0-35.0) pg MCHC 33.4 (31.0-37.0) g/dL RDW 14.8 (11.5-15.5) % Plt Count 227 (150-450) k/uL Neutrophils % 44 % Lymphocytes % 47 % Monocytes % 5 % Eosinophils % 1 % Basophils % 1 % Neutrophils # 2.7 (1.3-7.7) k/uL Lymphocytes # 2.8 (1.0-4.8) k/uL Monocytes # 0.3 (0-1.0) k/uL Eosinophils # 0.1 (0-0.7) k/uL Basophils # 0.0 (0-0.2) k/uL Sodium 146 H (137-145) mmol/L Potassium 4.1 (3.5-5.1) mmol/L Chloride 107 (98-107) mmol/L Carbon Dioxide 30 (22-30) mmol/L Anion Gap 9 mmol/L BUN 12 (9-20) mg/dL Creatinine 1.10 (0.66-1.25) mg/dL Est GFR (MDRD) Af Amer >60 (>60 ml/min/1.73 sqM) Est GFR (MDRD) Non-Af >60 (>60 ml/min/1.73 sqM) Glucose 81 (74-99) mg/dL Calcium 10.2 (8.4-10.2) mg/dL Total Bilirubin 0.5 (0.2-1.3) mg/dL AST 34 (17-59) U/L ALT 29 (21-72) U/L Alkaline Phosphatase 111 (38-126) U/L Total Protein 7.3 (6.3-8.2) g/dL Albumin 4.5 (3.5-5.0) g/dL Disposition Clinical Impression: Recurrent seizures Disposition: HOME SELF-CARE Condition: Stable Instructions: Recurrent Seizures in Adults (ED) Additional Instructions: Please follow-up with Dr. Dobbs in the beginning of the week. Return for seizure activity, weakness, worsening or change in symptoms or other concerns. Continue medications at this time. Referrals: Ed Lovell MD [Primary Care Provider] - 1-2 days Francisco Dobbs MD [STAFF PHYSICIAN] - 1-2 days Time of Disposition: 13:48
[2017-03-05 13:15] LABS: Basophils % (A) 1 %; Eosinophils # (A) 0.1 k/uL (0-0.7); Eosinophils % (A) 1 %; HCT 40.9 % (39.0-53.0); HGB 13.7 gm/dL (13.0-17.5); Lymphocytes # (A) 2.8 k/uL (1.0-4.8); Lymphocytes % (A) 47 %; MCH 30.2 pg (25.0-35.0); MCHC 33.4 g/dL (31.0-37.0); MCV 90.3 fL (80.0-100.0); Mean Platelet Volume 7.7; Monocytes # (A) 0.3 k/uL (0-1.0); Monocytes % (A) 5 %; Neutrophils # (A) 2.7 k/uL (1.3-7.7); Neutrophils % (A) 44 %; Platelet Count 227 k/uL (150-450); RBC 4.52 m/uL (4.30-5.90); RDW 14.8 % (11.5-15.5)
[2017-03-05 13:23] LABS: ALT 29 U/L (21-72); AST 34 U/L (17-59); Albumin 4.5 g/dL (3.5-5.0); Alkaline Phosphatase 111 U/L (38-126); Anion Gap 9 mmol/L; Blood Urea Nitrogen 12 mg/dL (9-20); Calcium 10.2 mg/dL (8.4-10.2); Carbon Dioxide 30 mmol/L (22-30); Chloride 107 mmol/L (98-107); Glucose 81 mg/dL (74-99); Potassium 4.1 mmol/L (3.5-5.1); Sodium 146 mmol/L (137-145); Total Bilirubin 0.5 mg/dL (0.2-1.3); Total Protein 7.3 g/dL (6.3-8.2)
[2017-03-05 13:30] VITALS: RESP 18
[2017-03-05 15:01] VITALS: BP 118/69; PULSE 65; TEMP 96.9
== END 2017-03-05 15:02 | disposition home or self-care (01) ==
LOC: EC 12:34
DX: G40.909 Epilepsy, unspecified, not intractable, without status epilepticus (principal); I69.898 Other sequelae of other cerebrovascular disease; R53.1 Weakness; E78.5 Hyperlipidemia, unspecified; I10 Essential (primary) hypertension; E07.9 Disorder of thyroid, unspecified; F32.9 Major depressive disorder, single episode, unspecified; F41.9 Anxiety disorder, unspecified; F17.200 Nicotine dependence, unspecified, uncomplicated; Z88.5 Allergy status to narcotic agent; Z79.82 Long term (current) use of aspirin; Z79.899 Other long term (current) drug therapy
CPT/HCPCS: 36415; 80053; 80177; 85025; 99284; 96374; J2060